=== PATIENT | male | born 1950 | race Caucasian/White ===

== ENCOUNTER 2020-04-17 19:18 | Inpatient (IN) ==
[2020-04-17] MEDS ORDERED: NITROGLYCERIN SL 0.4 MG TABLET SL ONE (19:25)
[2020-04-17] MEDS ORDERED: MORPHINE 4 MG/1 ML VIAL ONE (19:33)
[2020-04-17] MEDS ORDERED: HEPARIN 5,000 UNIT/1 ML VIAL ONE ×2 (19:34→20:23)
[2020-04-17] MEDS ORDERED: ONDANSETRON 4 MG/2 ML VIAL ONE ×2 (19:35→20:50)
[2020-04-17] MEDS ORDERED: EPTIFIBATIDE 20,000 MCG/10 ML VIAL ONE ×2 (19:36→21:07)
[2020-04-17] MEDS ORDERED: HEPARIN 5,000 UNIT/1 ML VIAL IV ONE (19:39)
[2020-04-17] MEDS ORDERED: NITROGLYCERIN SL 0.4 MG TABLET SL PRN (19:39)
[2020-04-17] MEDS ORDERED: MORPHINE 4 MG/1 ML VIAL IV STA (19:39)
[2020-04-17] MEDS ORDERED: ASPIRIN 325 MG TABLET PO STA (19:39)
[2020-04-17] MEDS: ONDANSETRON 4 MG/2 ML VIAL IV PRN (19:40)
[2020-04-17] MEDS ORDERED: MAGNESIUM SULF RIDER 2 GM in PREMIX 1 EACH IV PRN (19:41)
[2020-04-17] MEDS ORDERED: MAGNESIUM SULF RIDER 4 GM in PREMIX 1 EACH IV PRN (19:41)
[2020-04-17] MEDS ORDERED: DEXTROSE 50% 25 GM/50 ML VIAL IV PRN (19:41)
[2020-04-17] MEDS ORDERED: GLUCAGON 1 MG VIAL IM PRN (19:41)
[2020-04-17] MEDS: EPTIFIBATIDE 20,000 MCG/10 ML VIAL IV SCH ×2 (19:45→23:21)
[2020-04-17] MEDS ORDERED: LIDOCAINE 1% 20 ML VIAL ONE (19:52)
[2020-04-17] MEDS ORDERED: HEPARIN/NACL 0.9% 2 UNITS/ML 1,000 ML IV ONE (19:52)
[2020-04-17] MEDS ORDERED: MIDAZOLAM 2 MG/2 ML VIAL ONE (19:55)
[2020-04-17] MEDS ORDERED: HYDROmorphone 2 MG/1 ML VIAL ONE (19:55)
[2020-04-17] MEDS ORDERED: SODIUM CHLORIDE 0.45% 1,000 ML IV SCH (20:00)
[2020-04-17 20:06] LABS: INR 0.9; Partial Thromboplastin Time 26.5 SECS (23.9-33.8)
[2020-04-17 20:09] LABS: Albumin 3.5 G/DL (3.4-5.0); Bilirubin,Total 1.1 MG/DL (0.2-1.0); Calcium 8.7 MG/DL (8.5-10.1); Total Protein 7.2 G/DL (6.4-8.3)
[2020-04-17 20:15] LABS: Basophils # 0.1 10*3/uL (0.0-0.2); Basophils % 0.9 % (0.0-0.8); Eosinophils # 0.1 10*3/uL (0.0-0.87); Eosinophils % 0.5 % (0.00-10.9); Hematocrit 48.5 VOL% (42.0-52.0); Hemoglobin 17.6 GM/DL (14.0-18.0); Immature Granulocytes % 4.5 %; Immature Granulocytes Absolute 0.43 #; Lymphocytes # 1.8 10*3/uL (1.4-4.0); Lymphocytes % 18.5 % (21.2-54.2); Mean Corpuscular HGB Conc 36.3 GM/DL (32-36); Mean Corpuscular Volume 91.2 FL (87-102); Monocytes % 6.5 % (1.7-12.7); Neutrophils % 69.1 % (38.7-73.9); Platelet Count 164 T/CUMM (130-400); Red Blood Count 5.32 MC/CUMM (3.8-5.5); Red Cell Distribution Width 13.8 % (9.3-17.3); White Blood Count 9.5 T/CUMM (4-12)
[2020-04-17] MEDS ORDERED: EPTIFIBATIDE 75 MG/100 ML BOTTLE IV ONE (20:18)
[2020-04-17] MEDS: EPTIFIBATIDE 75 MG/100 ML BOTTLE IV SCH (20:21)
[2020-04-17] MEDS ORDERED: NITROPRUSSIDE 50 MG/2 ML VIAL ONE (20:22)
[2020-04-17] MEDS ORDERED: TICAGRELOR 90 MG TABLET ONE (20:54)
[2020-04-17] MEDS ORDERED: EPTIFIBATIDE 75 MG/100 ML BOTTLE IV SCH (21:00)
[2020-04-17] MEDS ORDERED: SODIUM CHLORIDE 0.9% 2,000 ML IV STA (21:04)
[2020-04-17] MEDS ORDERED: HEPARIN 5,000 UNIT/1 ML VIAL SUBCUT STA (21:06)
[2020-04-17] MEDS ORDERED: ZALEPLON 5 MG CAPSULE PO PRN (21:06)
[2020-04-17] MEDS ORDERED: SODIUM CHLORIDE 0.9% 1,000 ML IV SCH (21:30)
[2020-04-17] MEDS: INSULIN LISPRO 100 UNIT/ML SUBCUT SCH (21:52)
[2020-04-17] MEDS: MORPHINE 4 MG/1 ML VIAL IV PRN (22:02)
[2020-04-17] MEDS ORDERED: FUROSEMIDE 40 MG/4 ML VIAL IV ONE (22:14)
[2020-04-17] MEDS ORDERED: LABETALOL 20 MG/4 ML SYRINGE IV ONE (22:14)
[2020-04-17] MEDS ORDERED: FUROSEMIDE 40 MG/4 ML VIAL ONE (22:16)
[2020-04-17 23:26] LABS: CKMB % 7.8 %
[2020-04-17 23:29] LABS: Troponin I 71.1 NG/ML (0.00-0.045)
[2020-04-18] MEDS ORDERED: GLUCAGON 1 MG VIAL IM PRN (00:21)
[2020-04-18] MEDS ORDERED: DEXTROSE 50% 25 GM/50 ML VIAL IV PRN (00:21)
[2020-04-18] MEDS: EPTIFIBATIDE 75 MG/100 ML BOTTLE IV SCH (00:44)
[2020-04-18] MEDS: INSULIN GLARGINE 100 UNIT/ML SUBCUT SCH ×2 (00:53→20:58)
[2020-04-18] MEDS: MORPHINE 4 MG/1 ML VIAL IV PRN ×5 (00:54→23:28)
[2020-04-18] MEDS: NITROGLYCERIN DRIP 50 MG/250 ML BOTTLE IV PRN (01:10)
[2020-04-18] MEDS: ONDANSETRON 4 MG/2 ML VIAL IV PRN ×5 (02:02→23:28)
[2020-04-18 02:30] LABS: Basophils # 0.1 10*3/uL (0.0-0.2); Basophils % 0.8 % (0.0-0.8); Eosinophils % 0.1 % (0.00-10.9); Hematocrit 51.6 VOL% (42.0-52.0); Hemoglobin 17.6 GM/DL (14.0-18.0); Immature Granulocytes % 4.6 %; Immature Granulocytes Absolute 0.72 #; Lymphocytes # 1.5 10*3/uL (1.4-4.0); Lymphocytes % 9.5 % (21.2-54.2); Mean Corpuscular HGB Conc 34.1 GM/DL (32-36); Mean Corpuscular Volume 91.8 FL (87-102); Mean Platelet Volume 10.9 FL (9.6-12.0); Monocytes % 5.5 % (1.7-12.7); Neutrophils % 79.5 % (38.7-73.9); Platelet Count 171 T/CUMM (130-400); Red Blood Count 5.62 MC/CUMM (3.8-5.5); Red Cell Distribution Width 14.1 % (9.3-17.3); White Blood Count 15.5 T/CUMM (4-12)
[2020-04-18 02:40] LABS: Calcium 9.1 MG/DL (8.5-10.1); Osmolality,Calculated 293.1 MOS/KG (273-304)
[2020-04-18 04:56] LABS: Lymphocytes 10 % (20-55); Platelet Estimate Normal; Polychromasia 2+; Segmented Neutrophils 85 % (50-85); Total Cells Counted 100
[2020-04-18] MEDS ORDERED: MORPHINE 4 MG/1 ML VIAL IV ONE (07:05)
[2020-04-18 07:27] LABS: CKMB % 9.9 %
[2020-04-18] MEDS: ENOXAPARIN 40 MG/0.4 ML SYRINGE SUBCUT SCH (08:46)
[2020-04-18] MEDS: PANTOPRAZOLE 40 MG TABLET PO SCH (08:47)
[2020-04-18] MEDS: INSULIN LISPRO 100 UNIT/ML SUBCUT SCH ×3 (08:47→17:04)
[2020-04-18] MEDS: FUROSEMIDE 40 MG/4 ML VIAL IV SCH (08:47)
[2020-04-18] MEDS: TICAGRELOR 90 MG TABLET PO SCH ×2 (08:47→20:30)
[2020-04-18] MEDS: ASPIRIN EC 81 MG TABLET PO SCH (08:47)
[2020-04-18] MEDS ORDERED: carvediloL 3.125 MG TABLET PO SCH (09:00)
[2020-04-18 11:49] LABS: CKMB % 10.2 %
[2020-04-18 14:52] LABS: CKMB % 9.2 %
[2020-04-18 14:53] LABS: CKMB % 9.4 %
[2020-04-18] MEDS: ROSUVASTATIN 20 MG TABLET PO SCH (20:30)
[2020-04-18] MEDS: carvediloL 3.125 MG TABLET PO SCH (20:31)
[2020-04-18] MEDS: ALUMINUM/MAGNES/SIMETH MAX STR 30 ML UDCUP PO PRN (20:31)
[2020-04-19] MEDS: INSULIN LISPRO 100 UNIT/ML SUBCUT SCH ×5 (00:54→21:03)
[2020-04-19] MEDS: NITROGLYCERIN DRIP 50 MG/250 ML BOTTLE IV PRN (03:30)
[2020-04-19 04:39] LABS: Basophils % 0.2 % (0.0-0.8); Eosinophils % 0.3 % (0.00-10.9); Hematocrit 41.9 VOL% (42.0-52.0); Hemoglobin 14.1 GM/DL (14.0-18.0); Immature Granulocytes % 1.2 %; Immature Granulocytes Absolute 0.15 #; Lymphocytes # 1.5 10*3/uL (1.4-4.0); Lymphocytes % 12.3 % (21.2-54.2); Mean Corpuscular HGB Conc 33.7 GM/DL (32-36); Mean Corpuscular Volume 92.3 FL (87-102); Mean Platelet Volume 10.5 FL (9.6-12.0); Monocytes % 9.1 % (1.7-12.7); Neutrophils % 76.9 % (38.7-73.9); Platelet Count 114 T/CUMM (130-400); Red Blood Count 4.54 MC/CUMM (3.8-5.5); Red Cell Distribution Width 14.3 % (9.3-17.3); White Blood Count 12.1 T/CUMM (4-12)
[2020-04-19 05:20] LABS: Calcium 9.5 MG/DL (8.5-10.1); Osmolality,Calculated 286.1 MOS/KG (273-304)
[2020-04-19 05:22] LABS: Risk Ratio 5.24; VLDL CHOLESTEROL 79.4 MG/DL
[2020-04-19 05:23] LABS: Albumin 2.9 G/DL (3.4-5.0); Bilirubin,Direct 0.26 MG/DL (0.0-0.20); Bilirubin,Indirect 1.2 MG/DL (0.0-1.0); Bilirubin,Total 1.5 MG/DL (0.2-1.0); Total Protein 6.1 G/DL (6.4-8.3)
[2020-04-19] MEDS: FUROSEMIDE 40 MG/4 ML VIAL IV SCH (08:19)
[2020-04-19] MEDS: ENOXAPARIN 40 MG/0.4 ML SYRINGE SUBCUT SCH (08:19)
[2020-04-19] MEDS: POTASSIUM CHLORIDE 20 MEQ TABLET PO PRN (08:20)
[2020-04-19] MEDS: ASPIRIN EC 81 MG TABLET PO SCH (08:20)
[2020-04-19] MEDS: hydroCHLOROthiazide 12.5 MG CAPSULE PO SCH (08:20)
[2020-04-19] MEDS: carvediloL 3.125 MG TABLET PO SCH (08:20)
[2020-04-19] MEDS: TICAGRELOR 90 MG TABLET PO SCH ×2 (08:20→21:03)
[2020-04-19] MEDS: COLCHICINE 0.6 MG CAPSULE PO SCH ×2 (08:20→21:03)
[2020-04-19] MEDS: PANTOPRAZOLE 40 MG TABLET PO SCH (08:20)
[2020-04-19] MEDS ORDERED: TRAVOPROST 0.004% OPH SOLN 2.5 ML BOTTLE BOTH EYES SCH (09:00)
[2020-04-19] MEDS ORDERED: VALSARTAN 80 MG TABLET PO SCH (09:00)
[2020-04-19] MEDS ORDERED: TIMOLOL 0.5% OPH SOLN 5 ML BOTTLE BOTH EYES SCH (09:00)
[2020-04-19] MEDS ORDERED: TIMOLOL 0.5% OPH SOLN 5 ML BOTTLE RIGHT EYE SCH (09:16)
[2020-04-19] MEDS ORDERED: CARBOXYMETHYLCELLULOSE 1% OPH SOLN RIGHT EYE PRN ×2 (11:19→21:00)
[2020-04-19] MEDS: TRAVOPROST 0.004% OPH SOLN 2.5 ML BOTTLE RIGHT EYE SCH (21:02)
[2020-04-19] MEDS: TRESIBA 200 UNIT/ML SUBCUT SCH (21:02)
[2020-04-19] MEDS: INSULIN GLARGINE 100 UNIT/ML SUBCUT SCH (21:03)
[2020-04-19] MEDS: ROSUVASTATIN 20 MG TABLET PO SCH (21:03)
[2020-04-19] MEDS: carvediloL 12.5 MG TABLET PO SCH (21:03)
[2020-04-20 07:14] LABS: Calcium 9.1 MG/DL (8.5-10.1); Osmolality,Calculated 279.2 MOS/KG (273-304)
[2020-04-20] MEDS: ASPIRIN EC 81 MG TABLET PO SCH (09:40)
[2020-04-20] MEDS: hydroCHLOROthiazide 12.5 MG CAPSULE PO SCH (09:40)
[2020-04-20] MEDS: POTASSIUM CHLORIDE 20 MEQ TABLET PO PRN (09:40)
[2020-04-20] MEDS: PANTOPRAZOLE 40 MG TABLET PO SCH (09:40)
[2020-04-20] MEDS: COLCHICINE 0.6 MG CAPSULE PO SCH ×2 (09:40→21:22)
[2020-04-20] MEDS: carvediloL 12.5 MG TABLET PO SCH ×2 (09:40→21:23)
[2020-04-20] MEDS: TICAGRELOR 90 MG TABLET PO SCH ×2 (09:41→21:22)
[2020-04-20] MEDS: FUROSEMIDE 40 MG/4 ML VIAL IV SCH (09:41)
[2020-04-20] MEDS: ENOXAPARIN 40 MG/0.4 ML SYRINGE SUBCUT SCH (09:42)
[2020-04-20] MEDS: TIMOLOL 0.5% OPH SOLN 5 ML BOTTLE RIGHT EYE SCH (09:46)
[2020-04-20] MEDS: INSULIN LISPRO 100 UNIT/ML SUBCUT SCH ×4 (10:28→21:22)
[2020-04-20] MEDS ORDERED: POLYETHYLENE GLYCOL POWDER 17 GM PACK PO PRN (10:29)
[2020-04-20] MEDS: DOCUSATE SODIUM 100 MG CAPSULE PO SCH ×2 (12:08→21:22)
[2020-04-20] MEDS: TRAVOPROST 0.004% OPH SOLN 2.5 ML BOTTLE RIGHT EYE SCH (21:21)
[2020-04-20] MEDS: TRESIBA 200 UNIT/ML SUBCUT SCH (21:21)
[2020-04-20] MEDS: ROSUVASTATIN 20 MG TABLET PO SCH (21:22)
[2020-04-20] MEDS: INSULIN GLARGINE 100 UNIT/ML SUBCUT SCH (21:23)
[2020-04-21 06:36] LABS: Calcium 9.1 MG/DL (8.5-10.1)
[2020-04-21] MEDS: INSULIN LISPRO 100 UNIT/ML SUBCUT SCH ×4 (08:23→21:00)
[2020-04-21] MEDS: FUROSEMIDE 40 MG/4 ML VIAL IV SCH (09:14)
[2020-04-21] MEDS: ENOXAPARIN 40 MG/0.4 ML SYRINGE SUBCUT SCH (09:14)
[2020-04-21] MEDS: DOCUSATE SODIUM 100 MG CAPSULE PO SCH ×2 (09:15→21:01)
[2020-04-21] MEDS: hydroCHLOROthiazide 12.5 MG CAPSULE PO SCH (09:15)
[2020-04-21] MEDS: PANTOPRAZOLE 40 MG TABLET PO SCH (09:15)
[2020-04-21] MEDS: carvediloL 12.5 MG TABLET PO SCH ×2 (09:15→21:01)
[2020-04-21] MEDS: COLCHICINE 0.6 MG CAPSULE PO SCH ×2 (09:15→21:01)
[2020-04-21] MEDS: POTASSIUM CHLORIDE 20 MEQ TABLET PO PRN ×2 (09:15→10:40)
[2020-04-21] MEDS: ASPIRIN EC 81 MG TABLET PO SCH (09:16)
[2020-04-21] MEDS: TIMOLOL 0.5% OPH SOLN 5 ML BOTTLE RIGHT EYE SCH (09:16)
[2020-04-21] MEDS: TICAGRELOR 90 MG TABLET PO SCH ×2 (09:16→21:01)
[2020-04-21] MEDS: ALUMINUM/MAGNES/SIMETH MAX STR 30 ML UDCUP PO PRN ×2 (09:26→16:04)
[2020-04-21] MEDS: CLINDAMYCIN INJ 600 MG in PREMIX 1 EACH IV SCH ×2 (16:03→21:10)
[2020-04-21] MEDS: TRESIBA 200 UNIT/ML SUBCUT SCH (20:59)
[2020-04-21] MEDS: TRAVOPROST 0.004% OPH SOLN 2.5 ML BOTTLE RIGHT EYE SCH (20:59)
[2020-04-21] MEDS: INSULIN GLARGINE 100 UNIT/ML SUBCUT SCH (21:01)
[2020-04-21] MEDS: ROSUVASTATIN 20 MG TABLET PO SCH (21:01)
[2020-04-22] MEDS: CLINDAMYCIN INJ 600 MG in PREMIX 1 EACH IV SCH ×4 (03:31→22:35)
[2020-04-22] MEDS: INSULIN LISPRO 100 UNIT/ML SUBCUT SCH ×4 (08:42→21:32)
[2020-04-22] MEDS: FUROSEMIDE 40 MG/4 ML VIAL IV SCH (10:21)
[2020-04-22] MEDS: SODIUM CHLORIDE 0.9% 1,000 ML IV SCH (10:21)
[2020-04-22] MEDS: ENOXAPARIN 40 MG/0.4 ML SYRINGE SUBCUT SCH (10:21)
[2020-04-22] MEDS: hydroCHLOROthiazide 12.5 MG CAPSULE PO SCH (10:22)
[2020-04-22] MEDS: TIMOLOL 0.5% OPH SOLN 5 ML BOTTLE RIGHT EYE SCH (10:22)
[2020-04-22] MEDS: carvediloL 12.5 MG TABLET PO SCH ×2 (10:23→21:33)
[2020-04-22] MEDS: ASPIRIN EC 81 MG TABLET PO SCH (10:23)
[2020-04-22] MEDS: DOCUSATE SODIUM 100 MG CAPSULE PO SCH ×2 (10:23→21:33)
[2020-04-22] MEDS: COLCHICINE 0.6 MG CAPSULE PO SCH ×2 (10:23→21:33)
[2020-04-22] MEDS: TICAGRELOR 90 MG TABLET PO SCH ×2 (10:23→21:33)
[2020-04-22] MEDS: PANTOPRAZOLE 40 MG TABLET PO SCH (10:23)
[2020-04-22] MEDS: TRESIBA 200 UNIT/ML SUBCUT SCH (21:30)
[2020-04-22] MEDS: TRAVOPROST 0.004% OPH SOLN 2.5 ML BOTTLE RIGHT EYE SCH (21:30)
[2020-04-22] MEDS: INSULIN GLARGINE 100 UNIT/ML SUBCUT SCH (21:34)
[2020-04-22] MEDS: ROSUVASTATIN 20 MG TABLET PO SCH (21:34)
[2020-04-23] MEDS: SODIUM CHLORIDE 0.9% 1,000 ML IV SCH ×3 (01:01→21:47)
[2020-04-23] MEDS: CLINDAMYCIN INJ 600 MG in PREMIX 1 EACH IV SCH ×4 (04:10→21:56)
[2020-04-23 05:36] LABS: Basophils # 0.1 10*3/uL (0.0-0.2); Basophils % 0.7 % (0.0-0.8); Eosinophils # 0.2 10*3/uL (0.0-0.87); Eosinophils % 2.7 % (0.00-10.9); Hematocrit 39.9 VOL% (42.0-52.0); Immature Granulocytes % 2.8 %; Lymphocytes # 1.6 10*3/uL (1.4-4.0); Lymphocytes % 22.4 % (21.2-54.2); Mean Corpuscular HGB Conc 35.1 GM/DL (32-36); Mean Corpuscular Volume 89.1 FL (87-102); Mean Platelet Volume 11.1 FL (9.6-12.0); Monocytes % 11.9 % (1.7-12.7); Neutrophils % 59.5 % (38.7-73.9); Platelet Count 116 T/CUMM (130-400); Red Blood Count 4.48 MC/CUMM (3.8-5.5); Red Cell Distribution Width 13.9 % (9.3-17.3); White Blood Count 7.1 T/CUMM (4-12)
[2020-04-23 05:58] LABS: Calcium 9.1 MG/DL (8.5-10.1); Osmolality,Calculated 288.7 MOS/KG (273-304)
[2020-04-23] MEDS ORDERED: DIAZEPAM 5 MG TABLET PO ONE (06:00)
[2020-04-23] MEDS ORDERED: diphenhydrAMINE CAP 25 MG CAPSULE PO ONE (06:00)
[2020-04-23] MEDS ORDERED: LIDOCAINE 1% 20 ML VIAL ONE (06:53)
[2020-04-23] MEDS ORDERED: HEPARIN/NACL 0.9% 2 UNITS/ML 1,000 ML IV ONE (06:53)
[2020-04-23] MEDS: POTASSIUM CHLORIDE 20 MEQ TABLET PO PRN ×3 (07:01→16:34)
[2020-04-23] MEDS: carvediloL 12.5 MG TABLET PO SCH ×3 (07:39→21:48)
[2020-04-23] MEDS ORDERED: HYDROmorphone 2 MG/1 ML VIAL ONE (08:08)
[2020-04-23] MEDS ORDERED: MIDAZOLAM 2 MG/2 ML VIAL ONE (08:08)
[2020-04-23] MEDS ORDERED: BIVALIRUDIN 250 MG VIAL IV ONE (08:35)
[2020-04-23] MEDS: INSULIN LISPRO 100 UNIT/ML SUBCUT SCH ×4 (09:13→21:55)
[2020-04-23] MEDS ORDERED: TICAGRELOR 90 MG TABLET ONE (09:13)
[2020-04-23] MEDS ORDERED: DEXTROSE 50% 25 GM/50 ML VIAL IV PRN (09:22)
[2020-04-23] MEDS ORDERED: GLUCAGON 1 MG VIAL IM PRN (09:22)
[2020-04-23] MEDS: FUROSEMIDE 40 MG/4 ML VIAL IV SCH (12:55)
[2020-04-23] MEDS: PANTOPRAZOLE 40 MG TABLET PO SCH (13:32)
[2020-04-23] MEDS: hydroCHLOROthiazide 12.5 MG CAPSULE PO SCH (13:32)
[2020-04-23] MEDS: DOCUSATE SODIUM 100 MG CAPSULE PO SCH ×2 (13:32→22:08)
[2020-04-23] MEDS: COLCHICINE 0.6 MG CAPSULE PO SCH ×2 (13:32→21:48)
[2020-04-23] MEDS: ASPIRIN EC 81 MG TABLET PO SCH (13:32)
[2020-04-23] MEDS: TICAGRELOR 90 MG TABLET PO SCH ×2 (13:36→21:49)
[2020-04-23] MEDS: TIMOLOL 0.5% OPH SOLN 5 ML BOTTLE RIGHT EYE SCH (13:36)
[2020-04-23] MEDS ORDERED: TUBERCULIN SKIN TEST 0.1 ML SYRINGE INTRADERM ONE (14:34)
[2020-04-23] MEDS: ENOXAPARIN 40 MG/0.4 ML SYRINGE SUBCUT SCH (18:51)
[2020-04-23] MEDS: ROSUVASTATIN 20 MG TABLET PO SCH (21:48)
[2020-04-23] MEDS: TRESIBA 200 UNIT/ML SUBCUT SCH (21:51)
[2020-04-23] MEDS: TRAVOPROST 0.004% OPH SOLN 2.5 ML BOTTLE RIGHT EYE SCH (21:58)
[2020-04-23] MEDS: INSULIN GLARGINE 100 UNIT/ML SUBCUT SCH (22:08)
[2020-04-24] MEDS: SODIUM CHLORIDE 0.9% 1,000 ML IV SCH ×2 (02:59→12:39)
[2020-04-24] MEDS: CLINDAMYCIN INJ 600 MG in PREMIX 1 EACH IV SCH ×4 (04:30→23:19)
[2020-04-24 06:31] LABS: Blood Urea Nitrogen 48 MG/DL (7-18); Calcium 8.5 MG/DL (8.5-10.1); Estimated Glom Filtration Rate 47 ML/MIN; Glucose 283 MG/DL (74-106)
[2020-04-24] MEDS: ASPIRIN EC 81 MG TABLET PO SCH (09:01)
[2020-04-24] MEDS: COLCHICINE 0.6 MG CAPSULE PO SCH ×2 (09:01→22:29)
[2020-04-24] MEDS: FUROSEMIDE 40 MG/4 ML VIAL IV SCH (09:01)
[2020-04-24] MEDS: carvediloL 12.5 MG TABLET PO SCH ×2 (09:01→22:30)
[2020-04-24] MEDS: hydroCHLOROthiazide 12.5 MG CAPSULE PO SCH (09:01)
[2020-04-24] MEDS: TICAGRELOR 90 MG TABLET PO SCH ×2 (09:01→22:30)
[2020-04-24] MEDS: PANTOPRAZOLE 40 MG TABLET PO SCH (09:01)
[2020-04-24] MEDS: INSULIN LISPRO 100 UNIT/ML SUBCUT SCH ×3 (09:02→16:15)
[2020-04-24] MEDS: DOCUSATE SODIUM 100 MG CAPSULE PO SCH ×2 (09:03→22:30)
[2020-04-24] MEDS: TIMOLOL 0.5% OPH SOLN 5 ML BOTTLE RIGHT EYE SCH (09:04)
[2020-04-24] MEDS: ROSUVASTATIN 20 MG TABLET PO SCH (22:30)
[2020-04-24] MEDS: TRAVOPROST 0.004% OPH SOLN 2.5 ML BOTTLE RIGHT EYE SCH (22:33)
[2020-04-24] MEDS: TRESIBA 200 UNIT/ML SUBCUT SCH (23:08)
[2020-04-25] MEDS: INSULIN LISPRO 100 UNIT/ML SUBCUT SCH ×5 (00:04→21:17)
[2020-04-25] MEDS: INSULIN GLARGINE 100 UNIT/ML SUBCUT SCH ×3 (00:04→21:25)
[2020-04-25] MEDS: SODIUM CHLORIDE 0.9% 1,000 ML IV SCH ×3 (02:51→16:55)
[2020-04-25] MEDS: CLINDAMYCIN INJ 600 MG in PREMIX 1 EACH IV SCH ×4 (04:48→21:12)
[2020-04-25] MEDS ORDERED: LIDOCAINE 1% 20 ML VIAL ONE (06:28)
[2020-04-25 06:34] LABS: Calcium 8.5 MG/DL (8.5-10.1); Osmolality,Calculated 291.7 MOS/KG (273-304)
[2020-04-25] MEDS: TIMOLOL 0.5% OPH SOLN 5 ML BOTTLE RIGHT EYE SCH ×2 (06:45→09:10)
[2020-04-25] MEDS ORDERED: propofoL 200 MG/20 ML VIAL IV ONE (08:06)
[2020-04-25] MEDS ORDERED: LIDOCAINE 2% 5 ML VIAL ONE (08:06)
[2020-04-25] MEDS ORDERED: LIDOCAINE 1% 5 ML VIAL ONE (08:06)
[2020-04-25] MEDS ORDERED: KETAMINE 500 MG/10 ML VIAL ONE (08:07)
[2020-04-25] MEDS ORDERED: SODIUM CHLORIDE 0.9% 100 ML IV ONE (08:07)
[2020-04-25] MEDS ORDERED: MIDAZOLAM 2 MG/2 ML VIAL ONE (08:07)
[2020-04-25] MEDS: hydroCHLOROthiazide 12.5 MG CAPSULE PO SCH (09:08)
[2020-04-25] MEDS: FUROSEMIDE 40 MG/4 ML VIAL IV SCH (09:08)
[2020-04-25] MEDS: PANTOPRAZOLE 40 MG TABLET PO SCH (09:08)
[2020-04-25] MEDS: carvediloL 12.5 MG TABLET PO SCH ×2 (09:08→21:15)
[2020-04-25] MEDS: DOCUSATE SODIUM 100 MG CAPSULE PO SCH ×2 (09:09→21:15)
[2020-04-25] MEDS: COLCHICINE 0.6 MG CAPSULE PO SCH ×2 (09:09→21:15)
[2020-04-25] MEDS: TICAGRELOR 90 MG TABLET PO SCH ×2 (09:09→21:15)
[2020-04-25] MEDS: ASPIRIN EC 81 MG TABLET PO SCH (09:09)
[2020-04-25] MEDS ORDERED: DEXTROSE 50% 25 GM/50 ML VIAL IV PRN (10:21)
[2020-04-25] MEDS ORDERED: GLUCAGON 1 MG VIAL IM PRN (10:21)
[2020-04-25] MEDS: traMADol 50 MG TABLET PO PRN ×2 (15:32→21:15)
[2020-04-25] MEDS: ROSUVASTATIN 20 MG TABLET PO SCH (21:16)
[2020-04-25] MEDS: TRAVOPROST 0.004% OPH SOLN 2.5 ML BOTTLE RIGHT EYE SCH (21:17)
[2020-04-25] MEDS: TRESIBA 200 UNIT/ML SUBCUT SCH (21:18)
[2020-04-26] MEDS: CLINDAMYCIN INJ 600 MG in PREMIX 1 EACH IV SCH ×4 (04:08→21:18)
[2020-04-26] MEDS: SODIUM CHLORIDE 0.9% 1,000 ML IV SCH ×2 (06:31→21:17)
[2020-04-26] MEDS: INSULIN LISPRO 100 UNIT/ML SUBCUT SCH ×4 (07:20→21:22)
[2020-04-26] MEDS: PANTOPRAZOLE 40 MG TABLET PO SCH (09:34)
[2020-04-26] MEDS: carvediloL 12.5 MG TABLET PO SCH ×2 (09:34→21:20)
[2020-04-26] MEDS: traMADol 50 MG TABLET PO PRN ×2 (09:34→16:14)
[2020-04-26] MEDS: hydroCHLOROthiazide 12.5 MG CAPSULE PO SCH (09:34)
[2020-04-26] MEDS: ASPIRIN EC 81 MG TABLET PO SCH (09:34)
[2020-04-26] MEDS: COLCHICINE 0.6 MG CAPSULE PO SCH ×2 (09:34→21:20)
[2020-04-26] MEDS: DOCUSATE SODIUM 100 MG CAPSULE PO SCH ×2 (09:34→21:20)
[2020-04-26] MEDS: TICAGRELOR 90 MG TABLET PO SCH ×2 (09:35→21:21)
[2020-04-26] MEDS: TIMOLOL 0.5% OPH SOLN 5 ML BOTTLE RIGHT EYE SCH (09:35)
[2020-04-26] MEDS: FUROSEMIDE 40 MG/4 ML VIAL IV SCH (09:35)
[2020-04-26] MEDS: ROSUVASTATIN 20 MG TABLET PO SCH (21:19)
[2020-04-26] MEDS: TRAVOPROST 0.004% OPH SOLN 2.5 ML BOTTLE RIGHT EYE SCH (21:22)
[2020-04-26] MEDS: TRESIBA 200 UNIT/ML SUBCUT SCH (21:22)
[2020-04-26] MEDS: INSULIN GLARGINE 100 UNIT/ML SUBCUT SCH (21:23)
[2020-04-27] MEDS: traMADol 50 MG TABLET PO PRN (01:22)
[2020-04-27] MEDS: CLINDAMYCIN INJ 600 MG in PREMIX 1 EACH IV SCH ×4 (04:35→21:23)
[2020-04-27 06:39] LABS: Basophils % 0.5 % (0.0-0.8); Eosinophils # 0.2 10*3/uL (0.0-0.87); Eosinophils % 2.7 % (0.00-10.9); Hemoglobin 12.5 GM/DL (14.0-18.0); Immature Granulocytes % 1.9 %; Immature Granulocytes Absolute 0.12 #; Lymphocytes # 1.7 10*3/uL (1.4-4.0); Lymphocytes % 27.3 % (21.2-54.2); Mean Corpuscular HGB Conc 34.7 GM/DL (32-36); Mean Corpuscular Volume 89.1 FL (87-102); Mean Platelet Volume 11.1 FL (9.6-12.0); Monocytes % 9.9 % (1.7-12.7); Neutrophils % 57.7 % (38.7-73.9); Platelet Count 144 T/CUMM (130-400); Red Blood Count 4.04 MC/CUMM (3.8-5.5); Red Cell Distribution Width 13.7 % (9.3-17.3); White Blood Count 6.2 T/CUMM (4-12)
[2020-04-27 06:55] LABS: Calcium 9.2 MG/DL (8.5-10.1); Thyroid Stimulating Hormone 3.59 uIU/ml (0.358-3.74); Total Protein 6.5 G/DL (6.4-8.3); Uric Acid 12.3 MG/DL (3.5-7.2)
[2020-04-27] MEDS: INSULIN LISPRO 100 UNIT/ML SUBCUT SCH ×4 (08:43→21:32)
[2020-04-27] MEDS: DOCUSATE SODIUM 100 MG CAPSULE PO SCH ×2 (09:26→21:23)
[2020-04-27] MEDS: COLCHICINE 0.6 MG CAPSULE PO SCH ×2 (09:26→21:22)
[2020-04-27] MEDS: carvediloL 12.5 MG TABLET PO SCH ×2 (09:27→21:23)
[2020-04-27] MEDS: hydroCHLOROthiazide 12.5 MG CAPSULE PO SCH (09:27)
[2020-04-27] MEDS: FUROSEMIDE 40 MG/4 ML VIAL IV SCH (09:27)
[2020-04-27] MEDS: TICAGRELOR 90 MG TABLET PO SCH ×2 (09:27→21:23)
[2020-04-27] MEDS: POTASSIUM CHLORIDE 20 MEQ TABLET PO PRN ×4 (09:27→15:50)
[2020-04-27] MEDS: ASPIRIN EC 81 MG TABLET PO SCH (09:27)
[2020-04-27] MEDS: PANTOPRAZOLE 40 MG TABLET PO SCH (09:27)
[2020-04-27] MEDS: TIMOLOL 0.5% OPH SOLN 5 ML BOTTLE RIGHT EYE SCH (09:29)
[2020-04-27] MEDS: SODIUM CHLORIDE 0.9% 1,000 ML IV SCH (09:52)
[2020-04-27] MEDS: SKIN HEALING OINT (AQUAPHOR) 50 GM TUBE TOP SCH (13:47)
[2020-04-27] MEDS ORDERED: allopurinoL 100 MG TABLET PO SCH (16:00)
[2020-04-27] MEDS: ROSUVASTATIN 20 MG TABLET PO SCH (21:22)
[2020-04-27] MEDS: TRESIBA 200 UNIT/ML SUBCUT SCH (21:24)
[2020-04-27] MEDS: INSULIN GLARGINE 100 UNIT/ML SUBCUT SCH (21:25)
[2020-04-27] MEDS: TRAVOPROST 0.004% OPH SOLN 2.5 ML BOTTLE RIGHT EYE SCH (21:26)
[2020-04-28] MEDS: traMADol 50 MG TABLET PO PRN (01:04)
[2020-04-28] MEDS: POTASSIUM CHLORIDE 20 MEQ TABLET PO PRN ×2 (01:05→04:06)
[2020-04-28] MEDS: CLINDAMYCIN INJ 600 MG in PREMIX 1 EACH IV SCH ×2 (04:06→09:25)
[2020-04-28 05:46] LABS: Calcium 9.6 MG/DL (8.5-10.1)
[2020-04-28] MEDS: hydroCHLOROthiazide 12.5 MG CAPSULE PO SCH (08:55)
[2020-04-28] MEDS: carvediloL 12.5 MG TABLET PO SCH (08:55)
[2020-04-28] MEDS: TICAGRELOR 90 MG TABLET PO SCH (08:55)
[2020-04-28] MEDS: SKIN HEALING OINT (AQUAPHOR) 50 GM TUBE TOP SCH (08:55)
[2020-04-28] MEDS: INSULIN LISPRO 100 UNIT/ML SUBCUT SCH ×2 (08:55→15:29)
[2020-04-28] MEDS: PANTOPRAZOLE 40 MG TABLET PO SCH (08:55)
[2020-04-28] MEDS: DOCUSATE SODIUM 100 MG CAPSULE PO SCH (08:55)
[2020-04-28] MEDS: TIMOLOL 0.5% OPH SOLN 5 ML BOTTLE RIGHT EYE SCH (08:55)
[2020-04-28] MEDS: ASPIRIN EC 81 MG TABLET PO SCH (08:55)
[2020-04-28] MEDS: COLCHICINE 0.6 MG CAPSULE PO SCH (08:55)
[2020-04-28] MEDS ORDERED: FEBUXOSTAT 80 MG TABLET PO SCH (09:00)
[2020-04-28] MEDS: FUROSEMIDE 40 MG/4 ML VIAL IV SCH (09:25)
[2020-04-28 12:29] VITALS: BP 114/65
== END 2020-04-28 14:04 | DRG 239 ==
LOC: EDBD → EDUNIT# → N.ED 19:18 → N.EDINP 19:41 → SUATTDRO 19:41 → N.ICU 19:55 → N.TELEN 04-19 14:34
PROVIDERS: ADMIT Family Medicine; ATTEND Family Medicine
PROC: CLCCHCL (ICD-10-PCS; 2020-04-17 20:15)

== ENCOUNTER 2020-06-27 19:29 | Inpatient (IN) ==
[2020-06-27 20:34] LABS: Basophils % 0.2 % (0.0-0.8); Eosinophils # 0.2 10*3/uL (0.0-0.87); Eosinophils % 1.8 % (0.00-10.9); Hematocrit 28.5 VOL% (42.0-52.0); Hemoglobin 9.4 GM/DL (14.0-18.0); Immature Granulocytes % 0.9 %; Immature Granulocytes Absolute 0.09 #; Lymphocytes # 1.1 10*3/uL (1.4-4.0); Lymphocytes % 11.1 % (21.2-54.2); Mean Corpuscular Volume 89.1 FL (87-102); Mean Platelet Volume 10.9 FL (9.6-12.0); Monocytes % 11.8 % (1.7-12.7); Neutrophils % 74.2 % (38.7-73.9); Platelet Count 191 T/CUMM (130-400); Red Cell Distribution Width 14.7 % (9.3-17.3); White Blood Count 9.5 T/CUMM (4-12)
[2020-06-27 20:38] LABS: Albumin 2.9 G/DL (3.4-5.0); Calcium 8.8 MG/DL (8.5-10.1); Osmolality,Calculated 297.1 MOS/KG (273-304); Total Protein 6.2 G/DL (6.4-8.3)
[2020-06-27 20:41] LABS: Bilirubin,Urine Negative (Negative); Blood, Urine Negative (Negative); Glucose,Urine (UA) Negative (Negative); Hyaline Casts,Urine 3 /LPF (0-3); Ketones,Urine Negative (Negative); Mucus,Urine Occasional /LPF (Occasional); Nitrite,Urine Positive (Negative); Protein,Urine 30 MG/DL; RBC,Urine 2 /HPF (0-4); Squamous Epithelial Cell,Urine Occasional /HPF (0-10); Urine Appearance CLEAR (Clear); Urine Color Amber (Yellow); Urine Specific Gravity 1.014 (1.001-1.035); WBC,Urine 2 /HPF (0-6)
[2020-06-27] MEDS ORDERED: SODIUM CHLORIDE 0.9% 1,000 ML IV STA (20:59)
[2020-06-27] MEDS ORDERED: cefTRIAXone 1,000 MG in SODIUM CHLORIDE 0.9% 100 ML IV STA (21:00)
[2020-06-27] MEDS ORDERED: ACETAMINOPHEN 500 MG TABLET PO STA (21:00)
[2020-06-27] MEDS: SODIUM CHLORIDE 0.9% 1,000 ML IV SCH (23:13)
[2020-06-28 06:13] LABS: Basophils % 0.2 % (0.0-0.8); Eosinophils # 0.2 10*3/uL (0.0-0.87); Eosinophils % 1.8 % (0.00-10.9); Hematocrit 27.2 VOL% (42.0-52.0); Hemoglobin 8.9 GM/DL (14.0-18.0); Immature Granulocytes % 0.6 %; Immature Granulocytes Absolute 0.05 #; Lymphocytes # 0.7 10*3/uL (1.4-4.0); Lymphocytes % 8.1 % (21.2-54.2); Mean Corpuscular HGB Conc 32.7 GM/DL (32-36); Mean Corpuscular Volume 90.4 FL (87-102); Mean Platelet Volume 10.7 FL (9.6-12.0); Monocytes % 10.1 % (1.7-12.7); Neutrophils % 79.2 % (38.7-73.9); Platelet Count 164 T/CUMM (130-400); Red Blood Count 3.01 MC/CUMM (3.8-5.5); Red Cell Distribution Width 14.5 % (9.3-17.3); White Blood Count 8.9 T/CUMM (4-12)
[2020-06-28 06:37] LABS: Albumin 2.4 G/DL (3.4-5.0); Bilirubin,Total 1.3 MG/DL (0.2-1.0); Osmolality,Calculated 298.5 MOS/KG (273-304); Total Protein 6.4 G/DL (6.4-8.3)
[2020-06-28] MEDS: SODIUM CHLORIDE 0.9% 1,000 ML IV SCH ×2 (07:23→15:05)
[2020-06-28] MEDS: DOCUSATE SODIUM 100 MG CAPSULE PO SCH ×2 (09:33→21:31)
[2020-06-28] MEDS: POTASSIUM CHLORIDE 20 MEQ TABLET PO PRN ×4 (09:33→17:30)
[2020-06-28] MEDS: PANTOPRAZOLE 40 MG TABLET PO SCH (09:33)
[2020-06-28] MEDS: ONDANSETRON 4 MG/2 ML VIAL IV PRN (09:34)
[2020-06-28] MEDS: ACETAMINOPHEN 325 MG TABLET PO PRN (09:34)
[2020-06-28] MEDS ORDERED: POLYETHYLENE GLYCOL POWDER 17 GM PACK PO PRN (09:55)
[2020-06-28] MEDS ORDERED: CARBOXYMETHYLCELLULOSE 1% OPH SOLN RIGHT EYE PRN (09:55)
[2020-06-28] MEDS ORDERED: NITROGLYCERIN SL 0.4 MG TABLET SL PRN (09:55)
[2020-06-28] MEDS ORDERED: ALUMINUM/MAGNES/SIMETH MAX STR 30 ML UDCUP PO PRN (09:55)
[2020-06-28] MEDS ORDERED: traMADol 50 MG TABLET PO PRN (09:55)
[2020-06-28] MEDS: INSULIN LISPRO 100 UNIT/ML SUBCUT SCH ×3 (12:20→21:55)
[2020-06-28] MEDS: LORazepam 2 MG/1 ML VIAL IV PRN (15:06)
[2020-06-28] MEDS ORDERED: FUROSEMIDE 40 MG/4 ML VIAL IV ONE (17:23)
[2020-06-28] MEDS: SODIUM CHLORIDE 0.45% 1,000 ML IV SCH (18:01)
[2020-06-28] MEDS: MORPHINE 4 MG/1 ML VIAL IV PRN (18:03)
[2020-06-28] MEDS ORDERED: cefTRIAXone 1,000 MG in SODIUM CHLORIDE 0.9% 100 ML IV SCH (21:00)
[2020-06-28] MEDS ORDERED: SULFAMETHOX/TRIMETHOPRIM 800-160 MG TABLET PO SCH (21:00)
[2020-06-28] MEDS: MELATONIN 3 MG TABLET PO PRN (21:31)
[2020-06-28] MEDS: ESCITALOPRAM 10 MG TABLET PO SCH (21:31)
[2020-06-28] MEDS: carvediloL 12.5 MG TABLET PO SCH (21:32)
[2020-06-28] MEDS: TICAGRELOR 90 MG TABLET PO SCH (21:32)
[2020-06-28] MEDS: INSULIN GLARGINE 100 UNIT/ML SUBCUT SCH (21:55)
[2020-06-29 06:05] LABS: Calcium 8.6 MG/DL (8.5-10.1)
[2020-06-29] MEDS ORDERED: hydroCHLOROthiazide 12.5 MG CAPSULE PO SCH (09:00)
[2020-06-29] MEDS: INSULIN LISPRO 100 UNIT/ML SUBCUT SCH ×4 (09:00→21:09)
[2020-06-29] MEDS ORDERED: VALSARTAN 80 MG TABLET PO SCH (09:00)
[2020-06-29] MEDS ORDERED: VALSARTAN/HCTZ 160-12.5 MG TABLET PO SCH ×2 (09:00)
[2020-06-29] MEDS: TICAGRELOR 90 MG TABLET PO SCH ×2 (09:01→21:10)
[2020-06-29] MEDS: POTASSIUM CHLORIDE 10 MEQ TABLET PO SCH (09:01)
[2020-06-29] MEDS: DOCUSATE SODIUM 100 MG CAPSULE PO SCH ×2 (09:02→21:09)
[2020-06-29] MEDS: ASPIRIN EC 81 MG TABLET PO SCH (09:02)
[2020-06-29] MEDS: PANTOPRAZOLE 40 MG TABLET PO SCH (09:02)
[2020-06-29] MEDS: INSULIN GLARGINE 100 UNIT/ML SUBCUT SCH ×2 (09:02→21:11)
[2020-06-29] MEDS: FEBUXOSTAT 80 MG TABLET PO SCH (09:02)
[2020-06-29] MEDS: TIMOLOL 0.5% OPH SOLN 5 ML BOTTLE RIGHT EYE SCH (09:02)
[2020-06-29] MEDS: carvediloL 12.5 MG TABLET PO SCH ×2 (09:03→21:10)
[2020-06-29] MEDS: [UNRECOGNIZED DRUG - REMARK] BOTH NARES SCH (09:03)
[2020-06-29] MEDS ORDERED: BENZOCAINE/MENTHOL LOZENGE 18/BOX PO PRN (10:34)
[2020-06-29] MEDS: FUROSEMIDE 40 MG TABLET PO SCH (12:51)
[2020-06-29] MEDS: ONDANSETRON 4 MG/2 ML VIAL IV PRN (13:22)
[2020-06-29] MEDS: SODIUM CHLORIDE 0.45% 1,000 ML IV SCH (14:00)
[2020-06-29] MEDS: ACETAMINOPHEN 325 MG TABLET PO PRN (15:48)
[2020-06-29] MEDS ORDERED: FUROSEMIDE 40 MG/4 ML VIAL IV ONE (17:53)
[2020-06-29] MEDS: LORazepam 2 MG/1 ML VIAL IV PRN (18:03)
[2020-06-29] MEDS: MORPHINE 4 MG/1 ML VIAL IV PRN (18:05)
[2020-06-29 19:25] LABS: Basophils % 0.2 % (0.0-0.8); Eosinophils # 0.1 10*3/uL (0.0-0.87); Eosinophils % 0.4 % (0.00-10.9); Hematocrit 26.5 VOL% (42.0-52.0); Hemoglobin 8.8 GM/DL (14.0-18.0); Immature Granulocytes % 0.8 %; Lymphocytes # 0.6 10*3/uL (1.4-4.0); Lymphocytes % 5.2 % (21.2-54.2); Mean Corpuscular HGB Conc 33.2 GM/DL (32-36); Mean Corpuscular Volume 89.2 FL (87-102); Mean Platelet Volume 10.6 FL (9.6-12.0); Monocytes % 7.8 % (1.7-12.7); Neutrophils % 85.6 % (38.7-73.9); Platelet Count 181 T/CUMM (130-400); Red Blood Count 2.97 MC/CUMM (3.8-5.5); Red Cell Distribution Width 14.7 % (9.3-17.3)
[2020-06-29] MEDS: ESCITALOPRAM 10 MG TABLET PO SCH (21:11)
[2020-06-29] MEDS: MELATONIN 3 MG TABLET PO PRN (21:14)
[2020-06-29] MEDS: PIPERACILLIN/TAZOBACTAM 3,375 MG in SODIUM CHLORIDE 0.9% 100 ML IV SCH (21:23)
[2020-06-30] MEDS: LORazepam 2 MG/1 ML VIAL IV PRN ×2 (02:57→13:39)
[2020-06-30] MEDS: MORPHINE 4 MG/1 ML VIAL IV PRN ×3 (03:00→21:47)
[2020-06-30] MEDS: PIPERACILLIN/TAZOBACTAM 3,375 MG in SODIUM CHLORIDE 0.9% 100 ML IV SCH ×3 (06:59→20:41)
[2020-06-30 08:59] LABS: Osmolality,Calculated 289.8 MOS/KG (273-304)
[2020-06-30] MEDS: ASPIRIN EC 81 MG TABLET PO SCH (09:56)
[2020-06-30] MEDS: POTASSIUM CHLORIDE 10 MEQ TABLET PO SCH (09:56)
[2020-06-30] MEDS: carvediloL 12.5 MG TABLET PO SCH ×2 (09:56→20:42)
[2020-06-30] MEDS: FEBUXOSTAT 80 MG TABLET PO SCH (09:56)
[2020-06-30] MEDS: DOCUSATE SODIUM 100 MG CAPSULE PO SCH ×2 (09:56→20:41)
[2020-06-30] MEDS: TICAGRELOR 90 MG TABLET PO SCH ×2 (09:56→20:41)
[2020-06-30] MEDS: PANTOPRAZOLE 40 MG TABLET PO SCH (09:56)
[2020-06-30] MEDS: FUROSEMIDE 40 MG TABLET PO SCH (09:56)
[2020-06-30] MEDS: INSULIN LISPRO 100 UNIT/ML SUBCUT SCH ×4 (10:02→20:42)
[2020-06-30] MEDS: INSULIN GLARGINE 100 UNIT/ML SUBCUT SCH ×2 (10:04→20:41)
[2020-06-30] MEDS: [UNRECOGNIZED DRUG - REMARK] BOTH NARES SCH (10:05)
[2020-06-30] MEDS: TIMOLOL 0.5% OPH SOLN 5 ML BOTTLE RIGHT EYE SCH (10:05)
[2020-06-30] MEDS: FLUTICASONE 50 MCG NASAL SPRAY 16 GM BOTTLE BOTH NARES SCH (18:23)
[2020-06-30] MEDS: ESCITALOPRAM 10 MG TABLET PO SCH (20:41)
[2020-07-01] MEDS: MORPHINE 4 MG/1 ML VIAL IV PRN ×2 (00:54→04:06)
[2020-07-01] MEDS: PIPERACILLIN/TAZOBACTAM 3,375 MG in SODIUM CHLORIDE 0.9% 100 ML IV SCH ×2 (03:38→14:01)
[2020-07-01 08:12] LABS: Calcium 8.8 MG/DL (8.5-10.1)
[2020-07-01] MEDS: POTASSIUM CHLORIDE 10 MEQ TABLET PO SCH (09:02)
[2020-07-01] MEDS: PANTOPRAZOLE 40 MG TABLET PO SCH (09:02)
[2020-07-01] MEDS: carvediloL 12.5 MG TABLET PO SCH (09:02)
[2020-07-01] MEDS: ASPIRIN EC 81 MG TABLET PO SCH (09:02)
[2020-07-01] MEDS: FUROSEMIDE 40 MG TABLET PO SCH (09:02)
[2020-07-01] MEDS: DOCUSATE SODIUM 100 MG CAPSULE PO SCH (09:03)
[2020-07-01] MEDS: FEBUXOSTAT 80 MG TABLET PO SCH (09:03)
[2020-07-01] MEDS: TICAGRELOR 90 MG TABLET PO SCH (09:03)
[2020-07-01] MEDS: INSULIN LISPRO 100 UNIT/ML SUBCUT SCH ×2 (09:15→14:01)
[2020-07-01] MEDS: FLUTICASONE 50 MCG NASAL SPRAY 16 GM BOTTLE BOTH NARES SCH (09:16)
[2020-07-01] MEDS: INSULIN GLARGINE 100 UNIT/ML SUBCUT SCH (09:16)
[2020-07-01] MEDS: TIMOLOL 0.5% OPH SOLN 5 ML BOTTLE RIGHT EYE SCH (09:16)
[2020-07-01 11:38] VITALS: BP 101/64
== END 2020-07-01 13:47 | DRG 689 ==
LOC: EDUNIT# → N.ED 19:29 → N.EDINP 19:29 → N.TELEN 23:02
PROVIDERS: ADMIT Family Medicine; ATTEND Family Medicine

== ENCOUNTER 2021-03-17 13:50 | Inpatient (IN) ==
[2021-03-17] MEDS ORDERED: SODIUM CHLORIDE 0.9% 1,000 ML IV STA (13:58)
[2021-03-17] MEDS ORDERED: cefTRIAXone 2,000 MG in SODIUM CHLORIDE 0.9% 100 ML IV ONE (14:00)
[2021-03-17] MEDS ORDERED: cefTRIAXone 1,000 MG VIAL ONE (14:05)
[2021-03-17] MEDS ORDERED: VANCOMYCIN INJ 1,500 MG in SODIUM CHLORIDE 0.9% 500 ML IV STA (14:13)
[2021-03-17] MEDS ORDERED: VANCOMYCIN INJ 2,000 MG in SODIUM CHLORIDE 0.9% 500 ML IV STA (14:34)
[2021-03-17] MEDS ORDERED: GLUCAGON 1 MG VIAL IM PRN (14:45)
[2021-03-17] MEDS ORDERED: DEXTROSE 50% 25 GM/50 ML VIAL IV PRN (14:45)
[2021-03-17] MEDS ORDERED: NITROGLYCERIN SL 0.4 MG TABLET SL PRN (14:48)
[2021-03-17 14:51] LABS: Basophils % 0.2 % (0.0-0.8); Hematocrit 44.5 VOL% (42.0-52.0); Hemoglobin 14.6 GM/DL (14.0-18.0); Immature Granulocytes % 1.8 %; Immature Granulocytes Absolute 0.23 #; Lymphocytes # 0.6 10*3/uL (1.4-4.0); Lymphocytes % 4.6 % (21.2-54.2); Mean Corpuscular HGB Conc 32.8 GM/DL (32-36); Mean Corpuscular Volume 92.3 FL (87-102); Mean Platelet Volume 10.8 FL (9.6-12.0); Monocytes % 5.4 % (1.7-12.7); Platelet Count 104 T/CUMM (130-400); Red Blood Count 4.82 MC/CUMM (3.8-5.5); White Blood Count 12.5 T/CUMM (4-12)
[2021-03-17 15:01] LABS: INR 1.6; PT Patient Result 17.5 SECS (10.5-12.0)
[2021-03-17 15:10] LABS: Albumin 3.7 G/DL (3.4-5.0); Bilirubin,Total 1.6 MG/DL (0.20-1.00); Calcium 8.4 MG/DL (8.5-10.1); Osmolality,Calculated 289.8 MOS/KG (273-304); Potassium 4.3 MMOL/L (3.5-5.1); Total Protein 6.5 G/DL (6.4-8.2)
[2021-03-17 15:23] LABS: Lymphocytes 7 % (20-55); Segmented Neutrophils 86 % (50-85); Total Cells Counted 100
[2021-03-17] MEDS ORDERED: VANCOMYCIN INJ 2,000 MG in SODIUM CHLORIDE 0.9% 250 ML IV SCH (15:30)
[2021-03-17] MEDS: SODIUM CHLORIDE 0.9% 1,000 ML IV SCH (15:49)
[2021-03-17] MEDS: ENOXAPARIN 30 MG/0.3 ML SYRINGE SUBCUT SCH (15:49)
[2021-03-17 16:06] LABS: Bacteria,Urine Occasional /HPF (Few); Bilirubin,Urine Negative (Negative); Blood, Urine Negative (Negative); Glucose,Urine (UA) 150 mg/dL (Negative); Hyaline Casts,Urine 6 /LPF (0-3); Ketones,Urine Negative (Negative); Mucus,Urine Occasional /LPF (Occasional); Nitrite,Urine Negative (Negative); Protein,Urine >=500 MG/DL; RBC,Urine 1 /HPF (0-4); Squamous Epithelial Cell,Urine Occasional /HPF (0-10); Urine Appearance Slightly Hazy (Clear); Urine Color Amber (Yellow); Urine Specific Gravity 1.024 (1.001-1.035); Urine Urobilinogen < 2.0 EU/DL (0.2-1.0)
[2021-03-17] MEDS: INSULIN LISPRO 100 UNIT/ML SUBCUT SCH (16:44)
[2021-03-17] MEDS ORDERED: ACETAMINOPHEN 650 MG SUPP RECTAL PRN (17:12)
[2021-03-17] MEDS: carvediloL 12.5 MG TABLET PO SCH (23:09)
[2021-03-17] MEDS: GABAPENTIN 100 MG CAPSULE PO SCH (23:09)
[2021-03-17] MEDS: ACETAMINOPHEN 325 MG TABLET PO PRN (23:09)
[2021-03-17] MEDS: ESCITALOPRAM 10 MG TABLET PO SCH (23:09)
[2021-03-17] MEDS: rOPINIRole 0.25 MG TABLET PO SCH (23:58)
[2021-03-18] MEDS: INSULIN LISPRO 100 UNIT/ML SUBCUT SCH ×5 (02:39→22:51)
[2021-03-18] MEDS: SODIUM CHLORIDE 0.9% 1,000 ML IV SCH ×2 (03:18→07:00)
[2021-03-18 07:08] LABS: Basophils % 0.2 % (0.0-0.8); Hematocrit 43.7 VOL% (42.0-52.0); Hemoglobin 13.7 GM/DL (14.0-18.0); Immature Granulocytes % 0.7 %; Immature Granulocytes Absolute 0.06 #; Lymphocytes # 0.9 10*3/uL (1.4-4.0); Lymphocytes % 10.3 % (21.2-54.2); Mean Corpuscular HGB Conc 31.4 GM/DL (32-36); Mean Corpuscular Volume 96.9 FL (87-102); Mean Platelet Volume 11.3 FL (9.6-12.0); Monocytes % 6.2 % (1.7-12.7); Neutrophils % 82.6 % (38.7-73.9); Red Blood Count 4.51 MC/CUMM (3.8-5.5)
[2021-03-18 07:13] LABS: Calcium 7.8 MG/DL (8.5-10.1); Osmolality,Calculated 289.7 MOS/KG (273-304); Platelet Count 79 T/CUMM (130-400); Potassium 4.6 MMOL/L (3.5-5.1); White Blood Count 8.5 T/CUMM (4-12)
[2021-03-18 07:26] LABS: Band Neutrophils 5 % (0-10); Lymphocytes 10 % (20-55); Platelet Estimate Decreased; Segmented Neutrophils 82 % (50-85); Total Cells Counted 100
[2021-03-18] MEDS ORDERED: VANCOMYCIN INJ 1,750 MG in SODIUM CHLORIDE 0.9% 500 ML IV ONE (08:30)
[2021-03-18] MEDS: SODIUM CHLORIDE 0.45% 1,000 ML IV SCH (08:58)
[2021-03-18] MEDS: carvediloL 12.5 MG TABLET PO SCH ×2 (09:04→21:50)
[2021-03-18] MEDS: TAMSULOSIN 0.4 MG CAPSULE PO SCH (09:05)
[2021-03-18] MEDS: GABAPENTIN 100 MG CAPSULE PO SCH ×2 (09:05→21:50)
[2021-03-18] MEDS: CLOPIDOGREL 75 MG TABLET PO SCH (09:05)
[2021-03-18] MEDS: PANTOPRAZOLE 40 MG VIAL IV SCH (09:09)
[2021-03-18] MEDS: ALUMINUM/MAGNES/SIMETH MAX STR 30 ML UDCUP PO PRN ×2 (11:38→21:55)
[2021-03-18] MEDS ORDERED: VANCOMYCIN INJ 1,500 MG in SODIUM CHLORIDE 0.9% 500 ML IV SCH (15:00)
[2021-03-18] MEDS: ENOXAPARIN 30 MG/0.3 ML SYRINGE SUBCUT SCH (15:04)
[2021-03-18] MEDS: cefTRIAXone 2,000 MG in SODIUM CHLORIDE 0.9% 100 ML IV SCH (15:08)
[2021-03-18] MEDS ORDERED: NON-FORMULARY MEDICATION (Insulin Degludec [Tresiba Flextouch U-200] 200 unit/mL (3 mL) in SUBCUT SCH (21:00)
[2021-03-18] MEDS: rOPINIRole 0.25 MG TABLET PO SCH (21:50)
[2021-03-18] MEDS: ESCITALOPRAM 10 MG TABLET PO SCH (21:50)
[2021-03-18] MEDS: ONDANSETRON 4 MG/2 ML VIAL IV PRN (22:04)
[2021-03-18] MEDS: INSULIN GLARGINE 100 UNIT/ML SUBCUT SCH (22:04)
[2021-03-19] MEDS: ONDANSETRON 4 MG/2 ML VIAL IV PRN (03:03)
[2021-03-19] MEDS: SODIUM CHLORIDE 0.45% 1,000 ML IV SCH ×2 (03:04→20:53)
[2021-03-19 05:18] LABS: Osmolality,Calculated 288.7 MOS/KG (273-304); Potassium 4.2 MMOL/L (3.5-5.1)
[2021-03-19] MEDS: INSULIN LISPRO 100 UNIT/ML SUBCUT SCH ×4 (09:53→20:28)
[2021-03-19] MEDS: TAMSULOSIN 0.4 MG CAPSULE PO SCH (09:54)
[2021-03-19] MEDS: POTASSIUM CHLORIDE 20 MEQ TABLET PO SCH (09:54)
[2021-03-19] MEDS: CLOPIDOGREL 75 MG TABLET PO SCH (09:54)
[2021-03-19] MEDS: ASPIRIN EC 81 MG TABLET PO SCH (09:54)
[2021-03-19] MEDS: carvediloL 12.5 MG TABLET PO SCH ×2 (09:54→20:28)
[2021-03-19] MEDS: GABAPENTIN 100 MG CAPSULE PO SCH ×2 (09:57→20:28)
[2021-03-19] MEDS ORDERED: VANCOMYCIN INJ 1,750 MG in SODIUM CHLORIDE 0.9% 500 ML IV ONE (10:00)
[2021-03-19] MEDS: PANTOPRAZOLE 40 MG VIAL IV SCH (10:00)
[2021-03-19] MEDS: ACETAMINOPHEN 325 MG TABLET PO PRN ×2 (10:49→22:55)
[2021-03-19] MEDS: TIMOLOL 0.5% OPH SOLN 5 ML BOTTLE RIGHT EYE SCH (12:41)
[2021-03-19] MEDS ORDERED: VANCOMYCIN INJ 1,750 MG in SODIUM CHLORIDE 0.9% 500 ML IV PRN (13:30)
[2021-03-19] MEDS: ENOXAPARIN 30 MG/0.3 ML SYRINGE SUBCUT SCH (16:33)
[2021-03-19] MEDS: cefTRIAXone 2,000 MG in SODIUM CHLORIDE 0.9% 100 ML IV SCH (16:33)
[2021-03-19] MEDS: INSULIN GLARGINE 100 UNIT/ML SUBCUT SCH (20:28)
[2021-03-19] MEDS: rOPINIRole 0.25 MG TABLET PO SCH (20:28)
[2021-03-19] MEDS: ESCITALOPRAM 10 MG TABLET PO SCH (20:28)
[2021-03-19] MEDS: TRAVOPROST 0.004% OPH SOLN 2.5 ML BOTTLE RIGHT EYE SCH (20:33)
[2021-03-20] MEDS: ASPIRIN EC 81 MG TABLET PO SCH (09:53)
[2021-03-20] MEDS: carvediloL 12.5 MG TABLET PO SCH ×2 (09:53→20:50)
[2021-03-20] MEDS: INSULIN LISPRO 100 UNIT/ML SUBCUT SCH ×4 (09:53→20:49)
[2021-03-20] MEDS: GABAPENTIN 100 MG CAPSULE PO SCH ×2 (09:54→20:50)
[2021-03-20] MEDS: TAMSULOSIN 0.4 MG CAPSULE PO SCH (09:54)
[2021-03-20] MEDS: PANTOPRAZOLE 40 MG VIAL IV SCH (09:54)
[2021-03-20] MEDS: CLOPIDOGREL 75 MG TABLET PO SCH (09:54)
[2021-03-20] MEDS: POTASSIUM CHLORIDE 20 MEQ TABLET PO SCH (09:54)
[2021-03-20] MEDS: TIMOLOL 0.5% OPH SOLN 5 ML BOTTLE RIGHT EYE SCH (09:54)
[2021-03-20] MEDS: SODIUM CHLORIDE 0.45% 1,000 ML IV SCH (10:43)
[2021-03-20] MEDS: VANCOMYCIN INJ 1,750 MG in SODIUM CHLORIDE 0.9% 500 ML IV SCH (12:02)
[2021-03-20] MEDS: cefTRIAXone 2,000 MG in SODIUM CHLORIDE 0.9% 100 ML IV SCH (15:11)
[2021-03-20] MEDS: ENOXAPARIN 30 MG/0.3 ML SYRINGE SUBCUT SCH (15:11)
[2021-03-20] MEDS: INSULIN GLARGINE 100 UNIT/ML SUBCUT SCH (20:49)
[2021-03-20] MEDS: TRAVOPROST 0.004% OPH SOLN 2.5 ML BOTTLE RIGHT EYE SCH (20:49)
[2021-03-20] MEDS: ESCITALOPRAM 10 MG TABLET PO SCH (20:50)
[2021-03-20] MEDS: rOPINIRole 0.25 MG TABLET PO SCH (20:50)
[2021-03-21] MEDS: SODIUM CHLORIDE 0.45% 1,000 ML IV SCH ×3 (00:02→17:57)
[2021-03-21] MEDS: ASPIRIN EC 81 MG TABLET PO SCH (09:20)
[2021-03-21] MEDS: CLOPIDOGREL 75 MG TABLET PO SCH (09:21)
[2021-03-21] MEDS: TAMSULOSIN 0.4 MG CAPSULE PO SCH (09:21)
[2021-03-21] MEDS: GABAPENTIN 100 MG CAPSULE PO SCH ×2 (09:21→21:57)
[2021-03-21] MEDS: carvediloL 12.5 MG TABLET PO SCH ×2 (09:21→21:53)
[2021-03-21] MEDS: POTASSIUM CHLORIDE 20 MEQ TABLET PO SCH (09:22)
[2021-03-21] MEDS: PANTOPRAZOLE 40 MG VIAL IV SCH (09:22)
[2021-03-21] MEDS: TIMOLOL 0.5% OPH SOLN 5 ML BOTTLE RIGHT EYE SCH (09:23)
[2021-03-21] MEDS: INSULIN LISPRO 100 UNIT/ML SUBCUT SCH ×4 (10:28→21:52)
[2021-03-21] MEDS: VANCOMYCIN INJ 1,750 MG in SODIUM CHLORIDE 0.9% 500 ML IV SCH (11:36)
[2021-03-21 15:23] LABS: Basophils % 0.6 % (0.0-0.8); Eosinophils # 0.2 10*3/uL (0.0-0.87); Eosinophils % 2.6 % (0.00-10.9); Hematocrit 42.9 VOL% (42.0-52.0); Hemoglobin 13.7 GM/DL (14.0-18.0); Immature Granulocytes % 4.9 %; Lymphocytes # 1.1 10*3/uL (1.4-4.0); Lymphocytes % 18.3 % (21.2-54.2); Mean Corpuscular HGB Conc 31.9 GM/DL (32-36); Mean Corpuscular Volume 94.5 FL (87-102); Mean Platelet Volume 11.2 FL (9.6-12.0); Monocytes % 6.6 % (1.7-12.7); NRBC # 0.04 10*3/uL; Platelet Count 94 T/CUMM (130-400); Red Blood Count 4.54 MC/CUMM (3.8-5.5); White Blood Count 6.2 T/CUMM (4-12)
[2021-03-21 15:40] LABS: Calcium 8.5 MG/DL (8.5-10.1); Osmolality,Calculated 285.7 MOS/KG (273-304); Potassium 4.1 MMOL/L (3.5-5.1)
[2021-03-21] MEDS: ONDANSETRON 4 MG/2 ML VIAL IV PRN ×2 (15:41→22:03)
[2021-03-21] MEDS: cefTRIAXone 2,000 MG in SODIUM CHLORIDE 0.9% 100 ML IV SCH (15:45)
[2021-03-21] MEDS: ENOXAPARIN 30 MG/0.3 ML SYRINGE SUBCUT SCH (15:47)
[2021-03-21] MEDS ORDERED: PROMETHAZINE INJ 25 MG in SODIUM CHLORIDE 0.9% 50 ML IV ONE (15:51)
[2021-03-21] MEDS: ACETAMINOPHEN 325 MG TABLET PO PRN (16:26)
[2021-03-21] MEDS: INSULIN GLARGINE 100 UNIT/ML SUBCUT SCH (21:52)
[2021-03-21] MEDS: TRAVOPROST 0.004% OPH SOLN 2.5 ML BOTTLE RIGHT EYE SCH (21:57)
[2021-03-21] MEDS: rOPINIRole 0.25 MG TABLET PO SCH (21:57)
[2021-03-21] MEDS: ESCITALOPRAM 10 MG TABLET PO SCH (21:57)
[2021-03-22] MEDS: SODIUM CHLORIDE 0.45% 1,000 ML IV SCH ×3 (05:24→17:11)
[2021-03-22] MEDS: INSULIN LISPRO 100 UNIT/ML SUBCUT SCH ×4 (08:14→22:47)
[2021-03-22] MEDS: CLOPIDOGREL 75 MG TABLET PO SCH (09:11)
[2021-03-22] MEDS: ASPIRIN EC 81 MG TABLET PO SCH (09:11)
[2021-03-22] MEDS: carvediloL 12.5 MG TABLET PO SCH ×2 (09:12→21:32)
[2021-03-22] MEDS: POTASSIUM CHLORIDE 20 MEQ TABLET PO SCH (09:12)
[2021-03-22] MEDS: TIMOLOL 0.5% OPH SOLN 5 ML BOTTLE RIGHT EYE SCH (09:12)
[2021-03-22] MEDS: GABAPENTIN 100 MG CAPSULE PO SCH ×2 (09:12→21:32)
[2021-03-22] MEDS: TAMSULOSIN 0.4 MG CAPSULE PO SCH (09:12)
[2021-03-22] MEDS: PANTOPRAZOLE 40 MG VIAL IV SCH (09:13)
[2021-03-22] MEDS: VANCOMYCIN INJ 1,750 MG in SODIUM CHLORIDE 0.9% 500 ML IV SCH (11:55)
[2021-03-22] MEDS: ENOXAPARIN 40 MG/0.4 ML SYRINGE SUBCUT SCH (14:52)
[2021-03-22] MEDS: cefTRIAXone 2,000 MG in SODIUM CHLORIDE 0.9% 100 ML IV SCH (15:35)
[2021-03-22] MEDS: TRAVOPROST 0.004% OPH SOLN 2.5 ML BOTTLE RIGHT EYE SCH (21:32)
[2021-03-22] MEDS: ESCITALOPRAM 10 MG TABLET PO SCH (21:32)
[2021-03-22] MEDS: rOPINIRole 0.25 MG TABLET PO SCH (21:32)
[2021-03-22] MEDS: INSULIN GLARGINE 100 UNIT/ML SUBCUT SCH (22:48)
[2021-03-23] MEDS: MAGNESIUM HYDROXIDE SUSP 30 ML UDCUP PO PRN ×2 (01:33→09:40)
[2021-03-23] MEDS: SODIUM CHLORIDE 0.45% 1,000 ML IV SCH ×3 (02:00→17:06)
[2021-03-23] MEDS: INSULIN LISPRO 100 UNIT/ML SUBCUT SCH ×4 (09:34→20:23)
[2021-03-23] MEDS: ASPIRIN EC 81 MG TABLET PO SCH (09:40)
[2021-03-23] MEDS: TIMOLOL 0.5% OPH SOLN 5 ML BOTTLE RIGHT EYE SCH (09:40)
[2021-03-23] MEDS: GABAPENTIN 100 MG CAPSULE PO SCH ×2 (09:40→20:21)
[2021-03-23] MEDS: carvediloL 12.5 MG TABLET PO SCH ×2 (09:40→20:21)
[2021-03-23] MEDS: POTASSIUM CHLORIDE 20 MEQ TABLET PO SCH (09:40)
[2021-03-23] MEDS: CLOPIDOGREL 75 MG TABLET PO SCH (09:40)
[2021-03-23] MEDS: TAMSULOSIN 0.4 MG CAPSULE PO SCH (09:40)
[2021-03-23] MEDS: PANTOPRAZOLE 40 MG VIAL IV SCH (10:02)
[2021-03-23] MEDS: VANCOMYCIN INJ 1,750 MG in SODIUM CHLORIDE 0.9% 500 ML IV SCH (11:35)
[2021-03-23] MEDS: ENOXAPARIN 40 MG/0.4 ML SYRINGE SUBCUT SCH (15:26)
[2021-03-23] MEDS: cefTRIAXone 2,000 MG in SODIUM CHLORIDE 0.9% 100 ML IV SCH (15:26)
[2021-03-23] MEDS: ESCITALOPRAM 10 MG TABLET PO SCH (20:21)
[2021-03-23] MEDS: rOPINIRole 0.25 MG TABLET PO SCH (20:21)
[2021-03-23] MEDS: INSULIN GLARGINE 100 UNIT/ML SUBCUT SCH (20:22)
[2021-03-23] MEDS: TRAVOPROST 0.004% OPH SOLN 2.5 ML BOTTLE RIGHT EYE SCH (20:22)
[2021-03-24 07:44] VITALS: BP 150/98
[2021-03-24] MEDS: INSULIN LISPRO 100 UNIT/ML SUBCUT SCH (08:21)
[2021-03-24] MEDS: GABAPENTIN 100 MG CAPSULE PO SCH (08:22)
[2021-03-24] MEDS: TAMSULOSIN 0.4 MG CAPSULE PO SCH (08:22)
[2021-03-24] MEDS: POTASSIUM CHLORIDE 20 MEQ TABLET PO SCH (08:22)
[2021-03-24] MEDS: CLOPIDOGREL 75 MG TABLET PO SCH (08:22)
[2021-03-24] MEDS: carvediloL 12.5 MG TABLET PO SCH (08:22)
[2021-03-24] MEDS: PANTOPRAZOLE 40 MG VIAL IV SCH (08:23)
[2021-03-24] MEDS: ASPIRIN EC 81 MG TABLET PO SCH (08:23)
[2021-03-24] MEDS: TIMOLOL 0.5% OPH SOLN 5 ML BOTTLE RIGHT EYE SCH (08:23)
[2021-03-24] MEDS: SODIUM CHLORIDE 0.45% 1,000 ML IV SCH (08:28)
== END 2021-03-24 10:45 | disposition home or self-care (01) | DRG 871 ==
LOC: EDBD → EDUNIT# → N.ED 13:50 → N.EDINP 14:45 → N.3E 16:20
PROVIDERS: ADMIT Family Medicine; ATTEND Family Medicine

== ENCOUNTER 2021-05-07 15:51 | Inpatient (IN) ==
[2021-05-07] MEDS ORDERED: ASPIRIN 325 MG TABLET PO STA ×2 (16:42→16:52)
[2021-05-07 16:59] LABS: Basophils % 0.3 % (0.0-0.8); Eosinophils % 0.3 % (0.00-10.9); Hematocrit 39.2 VOL% (42.0-52.0); Hemoglobin 12.1 GM/DL (14.0-18.0); Immature Granulocytes % 0.8 %; Immature Granulocytes Absolute 0.03 #; Lymphocytes # 0.4 10*3/uL (1.4-4.0); Lymphocytes % 10.7 % (21.2-54.2); Mean Corpuscular HGB Conc 30.9 GM/DL (32-36); Mean Corpuscular Volume 92.7 FL (87-102); Mean Platelet Volume 10.4 FL (9.6-12.0); Monocytes % 0.8 % (1.7-12.7); Neutrophils % 87.1 % (38.7-73.9); Platelet Count 128 T/CUMM (130-400); Red Blood Count 4.23 MC/CUMM (3.8-5.5); Red Cell Distribution Width 16.1 % (9.3-17.3); White Blood Count 3.7 T/CUMM (4-12)
[2021-05-07] MEDS ORDERED: ONDANSETRON 4 MG/2 ML VIAL IV ONE (17:04)
[2021-05-07] MEDS ORDERED: MORPHINE 2 MG/1 ML SYRINGE IV STA (17:04)
[2021-05-07 17:07] LABS: PT Patient Result 11.4 SECS (10.5-12.0)
[2021-05-07 17:43] LABS: Band Neutrophils 2 % (0-10); Lymphocytes 8 % (20-55); Segmented Neutrophils 89 % (50-85); Total Cells Counted 100
[2021-05-07 17:44] LABS: Anisocytosis 2+; Macrocytosis Slight; Platelet Estimate Adequate; Polychromasia Slight
[2021-05-07 18:07] LABS: Albumin 3.4 G/DL (3.4-5.0); Bilirubin,Total 0.8 MG/DL (0.20-1.00); Calcium 9.1 MG/DL (8.5-10.1); Osmolality,Calculated 308.8 MOS/KG (273-304); Potassium 4.5 MMOL/L (3.5-5.1); Total Protein 7.2 G/DL (6.4-8.2)
[2021-05-07] MEDS ORDERED: INSULIN REGULAR 100 UNIT/ML IV STA (18:10)
[2021-05-07] MEDS ORDERED: SODIUM CHLORIDE 0.9% 500 ML IV STA (18:10)
[2021-05-07 18:33] LABS: ABG Base Excess -5.2 MMOL/L (-2.5-2.5); ABG HCO3 20.2 MMOL/L (20-26); ABG Oxygen Saturation 99.3 % (95-100); ABG PCO2 29.3 MM HG (35-48); ABG PH 7.405 (7.35-7.45); ABG TCO2 16.2 MMOL/L (23-27)
[2021-05-07] MEDS ORDERED: MORPHINE 2 MG/1 ML SYRINGE IV PRN (18:41)
[2021-05-07] MEDS ORDERED: DEXTROSE 50% 25 GM/50 ML VIAL IV PRN ×2 (18:41→19:44)
[2021-05-07] MEDS ORDERED: GLUCAGON 1 MG VIAL IM PRN ×2 (18:41→19:44)
[2021-05-07] MEDS ORDERED: ONDANSETRON 4 MG/2 ML VIAL IV PRN (18:41)
[2021-05-07] MEDS ORDERED: NITROGLYCERIN SL 0.4 MG TABLET SL PRN (19:44)
[2021-05-07] MEDS ORDERED: tiZANidine 4 MG TABLET PO PRN (19:44)
[2021-05-07] MEDS: INSULIN REGULAR 100 UNIT/ML SUBCUT SCH (19:48)
[2021-05-07 20:26] LABS: Risk Ratio 6.09
[2021-05-07] MEDS ORDERED: TRAVOPROST 0.004% OPH SOLN 2.5 ML BOTTLE RIGHT EYE SCH (21:00)
[2021-05-07] MEDS: SODIUM CHLORIDE 0.9% 1,000 ML IV SCH (22:02)
[2021-05-07] MEDS: INSULIN GLARGINE 100 UNIT/ML SUBCUT SCH (22:09)
[2021-05-07] MEDS: carvediloL 12.5 MG TABLET PO SCH (22:10)
[2021-05-07] MEDS: ESCITALOPRAM 10 MG TABLET PO SCH (22:10)
[2021-05-07] MEDS: GABAPENTIN 100 MG CAPSULE PO SCH ×2 (22:10→22:11)
[2021-05-07] MEDS: rOPINIRole 0.25 MG TABLET PO SCH (22:10)
[2021-05-07] MEDS: ENOXAPARIN 100 MG/ML SYRINGE SUBCUT SCH (22:10)
[2021-05-07] MEDS: TRAVOPROST 0.004% OPH SOLN 2.5 ML BOTTLE RIGHT EYE SCH (22:10)
[2021-05-08] MEDS: INSULIN REGULAR 100 UNIT/ML SUBCUT SCH ×7 (01:10→23:01)
[2021-05-08 06:37] LABS: Basophils % 0.1 % (0.0-0.8); Hematocrit 35.2 VOL% (42.0-52.0); Hemoglobin 11.5 GM/DL (14.0-18.0); Immature Granulocytes % 0.3 %; Immature Granulocytes Absolute 0.02 #; Lymphocytes # 0.5 10*3/uL (1.4-4.0); Mean Corpuscular HGB Conc 32.7 GM/DL (32-36); Mean Platelet Volume 11.5 FL (9.6-12.0); Monocytes % 6.1 % (1.7-12.7); Neutrophils % 86.5 % (38.7-73.9); Platelet Count 108 T/CUMM (130-400); Red Blood Count 3.91 MC/CUMM (3.8-5.5); White Blood Count 7.7 T/CUMM (4-12)
[2021-05-08 07:02] LABS: Risk Ratio 6.95; VLDL Cholesterol 98.4 MG/DL
[2021-05-08 07:06] LABS: Albumin 3.3 G/DL (3.4-5.0); Bilirubin,Total 0.8 MG/DL (0.20-1.00); Calcium 9.2 MG/DL (8.5-10.1); Osmolality,Calculated 295.8 MOS/KG (273-304); Total Protein 6.7 G/DL (6.4-8.2)
[2021-05-08] MEDS ORDERED: CLOPIDOGREL 75 MG TABLET PO SCH (09:00)
[2021-05-08] MEDS: CLOPIDOGREL 75 MG TABLET PO SCH (10:23)
[2021-05-08] MEDS: TAMSULOSIN 0.4 MG CAPSULE PO SCH (10:23)
[2021-05-08] MEDS: GABAPENTIN 100 MG CAPSULE PO SCH ×3 (10:24→20:34)
[2021-05-08] MEDS: carvediloL 12.5 MG TABLET PO SCH ×2 (10:24→20:34)
[2021-05-08] MEDS: INSULIN GLARGINE 100 UNIT/ML SUBCUT SCH ×2 (10:25→20:40)
[2021-05-08] MEDS: PANTOPRAZOLE 40 MG VIAL IV SCH (10:31)
[2021-05-08] MEDS: ENOXAPARIN 100 MG/ML SYRINGE SUBCUT SCH ×2 (10:45→20:54)
[2021-05-08] MEDS: SODIUM CHLORIDE 0.9% 1,000 ML IV SCH ×2 (10:46→23:05)
[2021-05-08] MEDS ORDERED: LIDOCAINE 1% 20 ML VIAL ONE (11:10)
[2021-05-08] MEDS ORDERED: HEPARIN/NACL 0.9% 2 UNITS/ML 2,000 UNIT/1,000 ML BAG IV ONE (11:10)
[2021-05-08] MEDS ORDERED: fentaNYL 100 MCG/2 ML VIAL ONE (11:22)
[2021-05-08] MEDS ORDERED: MIDAZOLAM 2 MG/2 ML VIAL ONE ×2 (11:22→12:15)
[2021-05-08] MEDS ORDERED: HEPARIN 5,000 UNIT/1 ML VIAL ONE ×2 (11:47→12:25)
[2021-05-08] MEDS ORDERED: diphenhydrAMINE CAP 50 MG CAPSULE PO ONE (12:00)
[2021-05-08] MEDS ORDERED: DIAZEPAM 5 MG TABLET PO ONE (12:00)
[2021-05-08] MEDS ORDERED: HEPARIN/NACL 0.9% 2 UNITS/ML 1,000 UNIT/500 ML BAG IV ONE (12:01)
[2021-05-08] MEDS ORDERED: HYDROmorphone 2 MG/1 ML VIAL ONE (12:21)
[2021-05-08] MEDS ORDERED: CLOPIDOGREL 300 MG TABLET ONE (12:42)
[2021-05-08] MEDS: TIMOLOL 0.5% OPH SOLN 5 ML BOTTLE RIGHT EYE SCH (18:26)
[2021-05-08] MEDS: TRAVOPROST 0.004% OPH SOLN 2.5 ML BOTTLE RIGHT EYE SCH (20:32)
[2021-05-08] MEDS: rOPINIRole 0.25 MG TABLET PO SCH (20:33)
[2021-05-08] MEDS: ESCITALOPRAM 10 MG TABLET PO SCH (20:34)
[2021-05-09] MEDS: INSULIN REGULAR 100 UNIT/ML SUBCUT SCH ×3 (04:15→11:45)
[2021-05-09 06:05] LABS: Basophils % 0.3 % (0.0-0.8); Eosinophils # 0.1 10*3/uL (0.0-0.87); Eosinophils % 0.9 % (0.00-10.9); Hematocrit 34.6 VOL% (42.0-52.0); Hemoglobin 10.4 GM/DL (14.0-18.0); Immature Granulocytes % 0.8 %; Immature Granulocytes Absolute 0.06 #; Lymphocytes # 1.3 10*3/uL (1.4-4.0); Lymphocytes % 17.5 % (21.2-54.2); Mean Corpuscular HGB Conc 30.1 GM/DL (32-36); Mean Corpuscular Volume 92.5 FL (87-102); Mean Platelet Volume 11.3 FL (9.6-12.0); Monocytes % 6.1 % (1.7-12.7); Neutrophils % 74.4 % (38.7-73.9); Red Blood Count 3.74 MC/CUMM (3.8-5.5); Red Cell Distribution Width 16.7 % (9.3-17.3); White Blood Count 7.4 T/CUMM (4-12)
[2021-05-09 06:19] LABS: Platelet Count 97 T/CUMM (130-400)
[2021-05-09 06:20] LABS: Calcium 9.2 MG/DL (8.5-10.1); Osmolality,Calculated 288.1 MOS/KG (273-304); Potassium 3.5 MMOL/L (3.5-5.1)
[2021-05-09 06:37] LABS: Hypochromasia 1+; Microcytosis 1+; Ovalocytes Slight
[2021-05-09 06:38] LABS: Platelet Estimate Decreased
[2021-05-09] MEDS: INSULIN GLARGINE 100 UNIT/ML SUBCUT SCH (09:30)
[2021-05-09] MEDS ORDERED: ASPIRIN EC 81 MG TABLET PO SCH (09:30)
[2021-05-09] MEDS: CLOPIDOGREL 75 MG TABLET PO SCH (09:30)
[2021-05-09] MEDS: carvediloL 12.5 MG TABLET PO SCH (09:30)
[2021-05-09] MEDS: GABAPENTIN 100 MG CAPSULE PO SCH (09:30)
[2021-05-09] MEDS: PANTOPRAZOLE 40 MG VIAL IV SCH (09:30)
[2021-05-09] MEDS: TAMSULOSIN 0.4 MG CAPSULE PO SCH (09:30)
[2021-05-09] MEDS ORDERED: ENOXAPARIN 40 MG/0.4 ML SYRINGE SUBCUT SCH (09:30)
[2021-05-09] MEDS: ENOXAPARIN 100 MG/ML SYRINGE SUBCUT SCH (11:44)
[2021-05-09] MEDS: TIMOLOL 0.5% OPH SOLN 5 ML BOTTLE RIGHT EYE SCH (12:05)
[2021-05-09 12:16] VITALS: BP 144/80
== END 2021-05-09 14:02 | disposition home or self-care (01) | DRG 246 ==
LOC: N.ED 15:51 → N.EDINP 18:40 → N.TELEN 21:31
PROVIDERS: ADMIT Family Medicine; ATTEND Family Medicine
PROC: CLCCHCL (ICD-10-PCS; 2021-05-08 11:45)

== ENCOUNTER 2021-05-12 07:33 | Inpatient (IN) ==
[2021-05-12] MEDS ORDERED: MORPHINE 2 MG/1 ML SYRINGE IV STA (07:55)
[2021-05-12] MEDS ORDERED: NITROGLYCERIN DRIP 50 MG/250 ML BOTTLE IV PRN (07:55)
[2021-05-12] MEDS ORDERED: ONDANSETRON 4 MG/2 ML VIAL IV STA (07:55)
[2021-05-12] MEDS ORDERED: HEPARIN 5,000 UNIT/1 ML VIAL IV ONE (07:56)
[2021-05-12 08:04] LABS: Basophils # 0.1 10*3/uL (0.0-0.2); Basophils % 0.8 % (0.0-0.8); Eosinophils # 0.1 10*3/uL (0.0-0.87); Eosinophils % 2.3 % (0.00-10.9); Hematocrit 35.9 VOL% (42.0-52.0); Hemoglobin 11.7 GM/DL (14.0-18.0); Immature Granulocytes % 3.9 %; Immature Granulocytes Absolute 0.24 #; Lymphocytes # 1.4 10*3/uL (1.4-4.0); Lymphocytes % 22.2 % (21.2-54.2); Mean Corpuscular HGB Conc 32.6 GM/DL (32-36); Mean Corpuscular Volume 89.5 FL (87-102); Mean Platelet Volume 11.3 FL (9.6-12.0); Monocytes % 9.9 % (1.7-12.7); Neutrophils % 60.9 % (38.7-73.9); Platelet Count 127 T/CUMM (130-400); Red Blood Count 4.01 MC/CUMM (3.8-5.5); Red Cell Distribution Width 16.1 % (9.3-17.3); White Blood Count 6.2 T/CUMM (4-12)
[2021-05-12 08:14] LABS: PT Patient Result 10.9 SECS (10.5-12.0); Partial Thromboplastin Time 23.1 SECS (23.9-33.8)
[2021-05-12] MEDS ORDERED: SODIUM CHLORIDE 0.9% 1,000 ML IV STA (08:20)
[2021-05-12 08:27] LABS: Albumin 3.5 G/DL (3.4-5.0); Bilirubin,Total 2.1 MG/DL (0.20-1.00); Calcium 9.8 MG/DL (8.5-10.1); Osmolality,Calculated 289.8 MOS/KG (273-304); Potassium 3.7 MMOL/L (3.5-5.1); Total Protein 6.5 G/DL (6.4-8.2)
[2021-05-12] MEDS ORDERED: ACETAMINOPHEN 325 MG TABLET PO PRN (09:20)
[2021-05-12] MEDS ORDERED: ONDANSETRON 4 MG/2 ML VIAL IV PRN (09:20)
[2021-05-12] MEDS ORDERED: ALUM/MAG/SIMETH/LIDO VISC 1:1 30 ML BOTTLE PO STA (10:02)
[2021-05-12] MEDS: carvediloL 12.5 MG TABLET PO SCH ×2 (15:05→20:28)
[2021-05-12] MEDS: CLOPIDOGREL 75 MG TABLET PO SCH (15:05)
[2021-05-12] MEDS ORDERED: DIAZEPAM 5 MG TABLET PO ONE (15:15)
[2021-05-12] MEDS ORDERED: MAGNESIUM SULF RIDER 2 GM/50 ML PREMIX IV PRN (15:15)
[2021-05-12] MEDS ORDERED: diphenhydrAMINE CAP 25 MG CAPSULE PO ONE (15:15)
[2021-05-12] MEDS ORDERED: CLOPIDOGREL 300 MG TABLET PO ONE (15:19)
[2021-05-12] MEDS ORDERED: HEPARIN/NACL 0.9% 2 UNITS/ML 2,000 UNIT/1,000 ML BAG IV ONE (15:22)
[2021-05-12] MEDS ORDERED: LIDOCAINE 1% 20 ML VIAL ONE (15:22)
[2021-05-12] MEDS ORDERED: DIAZEPAM 5 MG TABLET ONE (15:23)
[2021-05-12] MEDS ORDERED: diphenhydrAMINE CAP 50 MG CAPSULE ONE (15:23)
[2021-05-12] MEDS ORDERED: SODIUM CHLORIDE 0.45% 1,000 ML IV SCH (15:30)
[2021-05-12] MEDS ORDERED: MIDAZOLAM 2 MG/2 ML VIAL ONE (15:48)
[2021-05-12] MEDS ORDERED: fentaNYL 100 MCG/2 ML VIAL ONE (15:48)
[2021-05-12] MEDS ORDERED: HEPARIN 5,000 UNIT/1 ML VIAL ONE (16:12)
[2021-05-12] MEDS ORDERED: HEPARIN/NACL 0.9% 2 UNITS/ML 1,000 UNIT/500 ML BAG IV ONE (16:19)
[2021-05-12] MEDS ORDERED: TIROFIBAN 5,000 MCG/100 ML PREMIX IV ONE (16:20)
[2021-05-12] MEDS ORDERED: CLOPIDOGREL 300 MG TABLET ONE (16:44)
[2021-05-12] MEDS: DOCUSATE SODIUM 100 MG CAPSULE PO SCH (20:28)
[2021-05-12] MEDS: ATORVASTATIN 40 MG TABLET PO SCH (20:29)
[2021-05-13] MEDS ORDERED: NITROGLYCERIN SL 0.4 MG TABLET SL PRN (06:22)
[2021-05-13] MEDS ORDERED: ACETAMINOPHEN 325 MG TABLET PO PRN (06:22)
[2021-05-13] MEDS ORDERED: tiZANidine 4 MG TABLET PO PRN (06:22)
[2021-05-13] MEDS ORDERED: ALUMINUM/MAGNES/SIMETH MAX STR 30 ML UDCUP PO PRN (06:22)
[2021-05-13 07:15] LABS: Basophils % 0.5 % (0.0-0.8); Eosinophils # 0.2 10*3/uL (0.0-0.87); Eosinophils % 2.3 % (0.00-10.9); Hematocrit 36.2 VOL% (42.0-52.0); Hemoglobin 11.3 GM/DL (14.0-18.0); Immature Granulocytes % 1.9 %; Immature Granulocytes Absolute 0.15 #; Lymphocytes # 1.2 10*3/uL (1.4-4.0); Mean Corpuscular HGB Conc 31.2 GM/DL (32-36); Mean Corpuscular Volume 92.3 FL (87-102); Mean Platelet Volume 11.8 FL (9.6-12.0); Neutrophils % 71.3 % (38.7-73.9); Platelet Count 102 T/CUMM (130-400); Red Blood Count 3.92 MC/CUMM (3.8-5.5); Red Cell Distribution Width 16.6 % (9.3-17.3); White Blood Count 7.9 T/CUMM (4-12)
[2021-05-13 07:36] LABS: Hypochromasia 1+; Microcytosis 1+; Platelet Estimate Decreased
[2021-05-13 07:57] LABS: Osmolality,Calculated 284.7 MOS/KG (273-304); Potassium 3.8 MMOL/L (3.5-5.1)
[2021-05-13] MEDS ORDERED: DEXTROSE 50% 25 GM/50 ML VIAL IV PRN (08:01)
[2021-05-13] MEDS ORDERED: GLUCAGON 1 MG VIAL IM PRN (08:01)
[2021-05-13] MEDS: DAPAGLIFLOZIN 5 MG TABLET PO SCH (12:14)
[2021-05-13] MEDS: VALSARTAN 80 MG TABLET PO SCH (12:14)
[2021-05-13] MEDS: ASPIRIN EC 81 MG TABLET PO SCH (12:14)
[2021-05-13] MEDS: TAMSULOSIN 0.4 MG CAPSULE PO SCH (12:15)
[2021-05-13] MEDS: FEBUXOSTAT 80 MG TABLET PO SCH (12:15)
[2021-05-13] MEDS: CLOPIDOGREL 75 MG TABLET PO SCH (12:15)
[2021-05-13] MEDS: carvediloL 12.5 MG TABLET PO SCH ×2 (12:15→20:23)
[2021-05-13] MEDS: DOCUSATE SODIUM 100 MG CAPSULE PO SCH ×2 (12:16→20:22)
[2021-05-13] MEDS: PANTOPRAZOLE 40 MG TABLET PO SCH (12:16)
[2021-05-13] MEDS: POTASSIUM CHLORIDE 20 MEQ TABLET PO SCH (12:16)
[2021-05-13] MEDS: INSULIN GLARGINE 100 UNIT/ML SUBCUT SCH (12:17)
[2021-05-13] MEDS: GABAPENTIN 100 MG CAPSULE PO SCH ×2 (12:17→20:22)
[2021-05-13] MEDS: FUROSEMIDE 40 MG TABLET PO SCH (12:17)
[2021-05-13] MEDS: TIMOLOL 0.5% OPH SOLN 5 ML BOTTLE RIGHT EYE SCH (12:17)
[2021-05-13] MEDS: INSULIN LISPRO 100 UNIT/ML SUBCUT SCH ×3 (12:18→20:23)
[2021-05-13] MEDS: ATORVASTATIN 40 MG TABLET PO SCH (20:23)
[2021-05-13] MEDS ORDERED: TRAVOPROST 0.004% OPH SOLN 2.5 ML BOTTLE RIGHT EYE SCH (21:00)
[2021-05-13] MEDS ORDERED: rOPINIRole 0.25 MG TABLET PO SCH (21:00)
[2021-05-13] MEDS ORDERED: ESCITALOPRAM 10 MG TABLET PO SCH (21:00)
[2021-05-13] MEDS ORDERED: INSULIN GLARGINE 100 UNIT/ML SUBCUT SCH (21:00)
[2021-05-14 07:14] LABS: Calcium 8.8 MG/DL (8.5-10.1); Osmolality,Calculated 286.5 MOS/KG (273-304); Potassium 3.9 MMOL/L (3.5-5.1)
[2021-05-14] MEDS: INSULIN LISPRO 100 UNIT/ML SUBCUT SCH (07:38)
[2021-05-14 08:10] VITALS: BP 100/66
[2021-05-14] MEDS: FEBUXOSTAT 80 MG TABLET PO SCH (09:30)
[2021-05-14] MEDS: VALSARTAN 80 MG TABLET PO SCH (09:30)
[2021-05-14] MEDS: ASPIRIN EC 81 MG TABLET PO SCH (09:30)
[2021-05-14] MEDS: carvediloL 12.5 MG TABLET PO SCH (09:30)
[2021-05-14] MEDS: FUROSEMIDE 40 MG TABLET PO SCH (09:31)
[2021-05-14] MEDS: GABAPENTIN 100 MG CAPSULE PO SCH (09:31)
[2021-05-14] MEDS: PANTOPRAZOLE 40 MG TABLET PO SCH (09:31)
[2021-05-14] MEDS: CLOPIDOGREL 75 MG TABLET PO SCH (09:31)
[2021-05-14] MEDS: TAMSULOSIN 0.4 MG CAPSULE PO SCH (09:31)
[2021-05-14] MEDS: DAPAGLIFLOZIN 5 MG TABLET PO SCH (09:31)
[2021-05-14] MEDS: POTASSIUM CHLORIDE 20 MEQ TABLET PO SCH (09:31)
[2021-05-14] MEDS: DOCUSATE SODIUM 100 MG CAPSULE PO SCH (09:31)
[2021-05-14] MEDS: TIMOLOL 0.5% OPH SOLN 5 ML BOTTLE RIGHT EYE SCH (09:32)
[2021-05-14] MEDS: INSULIN GLARGINE 100 UNIT/ML SUBCUT SCH (09:32)
== END 2021-05-14 11:31 | disposition home health service (06) | DRG 250 ==
LOC: EDBD → EDUNIT# → N.ED 07:33 → N.EDINP 09:20 → SUATTDRO 09:20 → N.EDINP 10:58 → N.TELES 11:34
PROVIDERS: ADMIT Family Medicine; ATTEND Family Medicine

== ENCOUNTER 2021-06-15 13:44 | Inpatient (IN) ==
[2021-06-15] MEDS ORDERED: FUROSEMIDE 100 MG/10 ML VIAL IV STA (15:03)
[2021-06-15 15:29] LABS: Basophils # 0.1 10*3/uL (0.0-0.2); Basophils % 0.6 % (0.0-0.8); Eosinophils # 0.1 10*3/uL (0.0-0.87); Eosinophils % 1.6 % (0.00-10.9); Hematocrit 40.5 VOL% (42.0-52.0); Hemoglobin 12.4 GM/DL (14.0-18.0); Immature Granulocytes % 0.5 %; Immature Granulocytes Absolute 0.04 #; Lymphocytes # 0.9 10*3/uL (1.4-4.0); Lymphocytes % 11.5 % (21.2-54.2); Mean Corpuscular HGB Conc 30.6 GM/DL (32-36); Mean Corpuscular Volume 95.5 FL (87-102); Mean Platelet Volume 11.5 FL (9.6-12.0); Monocytes % 6.5 % (1.7-12.7); Neutrophils % 79.3 % (38.7-73.9); Platelet Count 75 T/CUMM (130-400); Red Blood Count 4.24 MC/CUMM (3.8-5.5); Red Cell Distribution Width 17.1 % (9.3-17.3); White Blood Count 8.2 T/CUMM (4-12)
[2021-06-15 15:55] LABS: Albumin 3.2 G/DL (3.4-5.0); Bilirubin,Total 1.1 MG/DL (0.20-1.00); Calcium 8.9 MG/DL (8.5-10.1); Osmolality,Calculated 297.4 MOS/KG (273-304); Thyroid Stimulating Hormone 2.35 uIU/ml (0.358-3.74); Total Protein 6.3 G/DL (6.4-8.2)
[2021-06-15 16:15] LABS: Bacteria,Urine Occasional /HPF (Few); Bilirubin,Urine Negative (Negative); Blood, Urine Negative (Negative); Glucose,Urine (UA) Negative (Negative); Hyaline Casts,Urine 7 /LPF (0-3); Ketones,Urine Negative (Negative); Nitrite,Urine Negative (Negative); Protein,Urine Negative; RBC,Urine 2 /HPF (0-4); Squamous Epithelial Cell,Urine Occasional /HPF (0-10); Urine Appearance CLEAR (Clear); Urine Color Yellow (Yellow); Urine Specific Gravity 1.017 (1.001-1.035); Urine Urobilinogen < 2.0 EU/DL (0.2-1.0)
[2021-06-15] MEDS ORDERED: ACETAMINOPHEN 325 MG TABLET PO PRN (17:59)
[2021-06-15] MEDS ORDERED: MAGNESIUM HYDROXIDE SUSP 30 ML UDCUP PO PRN (17:59)
[2021-06-15] MEDS ORDERED: ACETAMINOPHEN/CODEINE 300-30 MG TABLET PO PRN (17:59)
[2021-06-15] MEDS: ENOXAPARIN 30 MG/0.3 ML SYRINGE SUBCUT SCH (23:05)
[2021-06-16] MEDS: ONDANSETRON 4 MG/2 ML VIAL IV PRN ×4 (02:13→22:12)
[2021-06-16 05:28] LABS: Basophils % 0.3 % (0.0-0.8); Eosinophils # 0.1 10*3/uL (0.0-0.87); Hematocrit 39.6 VOL% (42.0-52.0); Hemoglobin 11.9 GM/DL (14.0-18.0); Immature Granulocytes % 0.5 %; Immature Granulocytes Absolute 0.04 #; Lymphocytes % 13.3 % (21.2-54.2); Mean Corpuscular HGB Conc 30.1 GM/DL (32-36); Mean Corpuscular Volume 95.2 FL (87-102); Mean Platelet Volume 11.2 FL (9.6-12.0); Monocytes % 7.2 % (1.7-12.7); Neutrophils % 77.7 % (38.7-73.9); Platelet Count 74 T/CUMM (130-400); Red Blood Count 4.16 MC/CUMM (3.8-5.5); White Blood Count 7.8 T/CUMM (4-12)
[2021-06-16 05:56] LABS: Calcium 8.7 MG/DL (8.5-10.1); Osmolality,Calculated 298.3 MOS/KG (273-304); Platelet Estimate Decreased; Potassium 3.7 MMOL/L (3.5-5.1)
[2021-06-16] MEDS ORDERED: tiZANidine 4 MG TABLET PO PRN (08:40)
[2021-06-16] MEDS ORDERED: NITROGLYCERIN SL 0.4 MG TABLET SL PRN (08:40)
[2021-06-16] MEDS ORDERED: ALUMINUM/MAGNES/SIMETH MAX STR 30 ML UDCUP PO PRN (08:40)
[2021-06-16] MEDS: FUROSEMIDE 40 MG/4 ML VIAL IV SCH ×2 (09:57→16:41)
[2021-06-16] MEDS ORDERED: LIDOCAINE 2% TOP JELLY 20 ML VIAL INTRAURETH ONE (10:19)
[2021-06-16] MEDS: ASPIRIN EC 81 MG TABLET PO SCH ×2 (10:35→16:41)
[2021-06-16] MEDS: carvediloL 12.5 MG TABLET PO SCH ×2 (10:35→22:11)
[2021-06-16] MEDS: CLOPIDOGREL 75 MG TABLET PO SCH ×2 (10:36→16:41)
[2021-06-16] MEDS: TAMSULOSIN 0.4 MG CAPSULE PO SCH (10:36)
[2021-06-16] MEDS: FEBUXOSTAT 80 MG TABLET PO SCH (10:36)
[2021-06-16] MEDS: PANTOPRAZOLE 40 MG TABLET PO SCH (10:36)
[2021-06-16] MEDS: GABAPENTIN 100 MG CAPSULE PO SCH ×2 (10:36→22:11)
[2021-06-16] MEDS: DAPAGLIFLOZIN 5 MG TABLET PO SCH (10:36)
[2021-06-16] MEDS: TIMOLOL 0.5% OPH SOLN 5 ML BOTTLE RIGHT EYE SCH (10:36)
[2021-06-16] MEDS: ENOXAPARIN 30 MG/0.3 ML SYRINGE SUBCUT SCH (17:23)
[2021-06-16] MEDS: ESCITALOPRAM 10 MG TABLET PO SCH (22:10)
[2021-06-16] MEDS: rOPINIRole 0.25 MG TABLET PO SCH (22:10)
[2021-06-16] MEDS: SACUBITRIL/VALSARTAN 49-51 MG TABLET PO SCH (22:11)
[2021-06-16] MEDS: TRAVOPROST 0.004% OPH SOLN 2.5 ML BOTTLE RIGHT EYE SCH (22:11)
[2021-06-16] MEDS: ATORVASTATIN 40 MG TABLET PO SCH (22:12)
[2021-06-16] MEDS: INSULIN GLARGINE 100 UNIT/ML SUBCUT SCH (23:46)
[2021-06-16] MEDS: HYDROmorphone 2 MG/1 ML VIAL IV PRN (23:47)
[2021-06-17] MEDS: GABAPENTIN 100 MG CAPSULE PO SCH ×2 (08:55→21:03)
[2021-06-17] MEDS: CLOPIDOGREL 75 MG TABLET PO SCH (08:55)
[2021-06-17] MEDS: FUROSEMIDE 40 MG/4 ML VIAL IV SCH ×2 (08:55→15:39)
[2021-06-17] MEDS: TAMSULOSIN 0.4 MG CAPSULE PO SCH (08:55)
[2021-06-17] MEDS: DAPAGLIFLOZIN 5 MG TABLET PO SCH (08:55)
[2021-06-17] MEDS: ASPIRIN EC 81 MG TABLET PO SCH (08:55)
[2021-06-17] MEDS: PANTOPRAZOLE 40 MG TABLET PO SCH (08:55)
[2021-06-17] MEDS: FEBUXOSTAT 80 MG TABLET PO SCH (08:55)
[2021-06-17] MEDS: SACUBITRIL/VALSARTAN 49-51 MG TABLET PO SCH ×2 (08:55→21:03)
[2021-06-17] MEDS: carvediloL 12.5 MG TABLET PO SCH ×2 (08:55→21:04)
[2021-06-17] MEDS: TIMOLOL 0.5% OPH SOLN 5 ML BOTTLE RIGHT EYE SCH (08:56)
[2021-06-17] MEDS: HYDROmorphone 2 MG/1 ML VIAL IV PRN (12:14)
[2021-06-17] MEDS: ENOXAPARIN 30 MG/0.3 ML SYRINGE SUBCUT SCH (17:04)
[2021-06-17] MEDS: ATORVASTATIN 40 MG TABLET PO SCH (21:03)
[2021-06-17] MEDS: ESCITALOPRAM 10 MG TABLET PO SCH (21:03)
[2021-06-17] MEDS: rOPINIRole 0.25 MG TABLET PO SCH (21:04)
[2021-06-17] MEDS: INSULIN GLARGINE 100 UNIT/ML SUBCUT SCH (21:05)
[2021-06-17] MEDS: TRAVOPROST 0.004% OPH SOLN 2.5 ML BOTTLE RIGHT EYE SCH (21:06)
[2021-06-18 06:07] LABS: Basophils % 0.4 % (0.0-0.8); Eosinophils # 0.2 10*3/uL (0.0-0.87); Eosinophils % 3.3 % (0.00-10.9); Hematocrit 38.5 VOL% (42.0-52.0); Hemoglobin 11.7 GM/DL (14.0-18.0); Immature Granulocytes % 0.4 %; Immature Granulocytes Absolute 0.02 #; Lymphocytes % 22.9 % (21.2-54.2); Mean Corpuscular HGB Conc 30.4 GM/DL (32-36); Mean Corpuscular Volume 95.5 FL (87-102); Mean Platelet Volume 10.9 FL (9.6-12.0); Monocytes % 10.4 % (1.7-12.7); Neutrophils % 62.6 % (38.7-73.9); Platelet Count 62 T/CUMM (130-400); Red Blood Count 4.03 MC/CUMM (3.8-5.5); Red Cell Distribution Width 16.6 % (9.3-17.3); White Blood Count 4.5 T/CUMM (4-12)
[2021-06-18 06:21] LABS: Calcium 8.8 MG/DL (8.5-10.1); Osmolality,Calculated 294.3 MOS/KG (273-304); Potassium 3.2 MMOL/L (3.5-5.1)
[2021-06-18 06:26] LABS: Calcium 9.3 MG/DL (8.5-10.1); Osmolality,Calculated 296.1 MOS/KG (273-304); Potassium 3.3 MMOL/L (3.5-5.1)
[2021-06-18 06:41] LABS: Platelet Estimate Decreased
[2021-06-18 07:52] VITALS: BP 99/73
[2021-06-18] MEDS ORDERED: POTASSIUM CHLORIDE 20 MEQ TABLET PO ONE ×2 (08:30→10:00)
[2021-06-18] MEDS: FUROSEMIDE 40 MG/4 ML VIAL IV SCH (09:09)
[2021-06-18] MEDS: FEBUXOSTAT 80 MG TABLET PO SCH (09:14)
[2021-06-18] MEDS: CLOPIDOGREL 75 MG TABLET PO SCH (09:14)
[2021-06-18] MEDS: ASPIRIN EC 81 MG TABLET PO SCH (09:14)
[2021-06-18] MEDS: GABAPENTIN 100 MG CAPSULE PO SCH (09:15)
[2021-06-18] MEDS: TAMSULOSIN 0.4 MG CAPSULE PO SCH (09:15)
[2021-06-18] MEDS: DAPAGLIFLOZIN 5 MG TABLET PO SCH (09:15)
[2021-06-18] MEDS: carvediloL 12.5 MG TABLET PO SCH (09:15)
[2021-06-18] MEDS: PANTOPRAZOLE 40 MG TABLET PO SCH (09:15)
[2021-06-18] MEDS: SACUBITRIL/VALSARTAN 49-51 MG TABLET PO SCH (09:15)
[2021-06-18] MEDS: TIMOLOL 0.5% OPH SOLN 5 ML BOTTLE RIGHT EYE SCH (09:15)
[2021-06-18] MEDS ORDERED: FUROSEMIDE 80 MG TABLET PO SCH (16:00)
== END 2021-06-18 10:50 | disposition home health service (06) | DRG 729 ==
LOC: N.ED 13:44 → N.EDINP 17:59 → N.5E 19:39
PROVIDERS: ADMIT Family Medicine; ATTEND Family Medicine

== ENCOUNTER 2021-10-07 12:18 | Inpatient (IN) ==
[2021-10-07] MEDS ORDERED: ACETAMINOPHEN 325 MG TABLET PO PRN (13:16)
[2021-10-07] MEDS ORDERED: ONDANSETRON 4 MG/2 ML VIAL IV PRN (13:16)
[2021-10-07] MEDS ORDERED: DEXTROSE 10% 250 ML BAG IV PRN (13:16)
[2021-10-07] MEDS ORDERED: GLUCAGON 1 MG VIAL IM PRN (13:16)
[2021-10-07] MEDS ORDERED: ALUMINUM/MAGNES/SIMETH MAX STR 30 ML UDCUP PO PRN (13:27)
[2021-10-07] MEDS ORDERED: SODIUM CHLORIDE 0.45% 1,000 ML IV SCH (13:30)
[2021-10-07] MEDS ORDERED: NITROGLYCERIN SL 0.4 MG TABLET SL PRN (13:32)
[2021-10-07 15:46] LABS: Basophils % 0.4 % (0.0-0.8); Eosinophils # 0.7 10*3/uL (0.0-0.87); Eosinophils % 6.3 % (0.00-10.9); Hematocrit 33.1 VOL% (42.0-52.0); Hemoglobin 10.8 GM/DL (14.0-18.0); Immature Granulocytes % 0.9 %; Lymphocytes % 8.8 % (21.2-54.2); Mean Corpuscular HGB Conc 32.6 GM/DL (32-36); Mean Platelet Volume 10.7 FL (9.6-12.0); Monocytes % 8.1 % (1.7-12.7); Neutrophils % 75.5 % (38.7-73.9); Platelet Count 155 T/CUMM (130-400); Red Blood Count 3.72 MC/CUMM (3.8-5.5); Red Cell Distribution Width 15.9 % (9.3-17.3); White Blood Count 11.1 T/CUMM (4-12)
[2021-10-07 16:16] LABS: Albumin 2.6 G/DL (3.4-5.0); Bilirubin,Total 1.8 MG/DL (0.20-1.00); Calcium 8.6 MG/DL (8.5-10.1); Osmolality,Calculated 287.4 MOS/KG (273-304); Total Protein 6.1 G/DL (6.4-8.2)
[2021-10-07] MEDS: INSULIN LISPRO 100 UNIT/ML SUBCUT SCH ×2 (17:19→21:51)
[2021-10-07] MEDS ORDERED: ATORVASTATIN 40 MG TABLET PO SCH (21:00)
[2021-10-07] MEDS ORDERED: carvediloL 12.5 MG TABLET PO SCH (21:00)
[2021-10-07] MEDS ORDERED: SACUBITRIL/VALSARTAN 49-51 MG TABLET PO SCH (21:00)
[2021-10-07] MEDS: DOCUSATE SODIUM 100 MG CAPSULE PO SCH (21:50)
[2021-10-07] MEDS: rOPINIRole 1 MG TABLET PO SCH (21:50)
[2021-10-07] MEDS: GABAPENTIN 100 MG CAPSULE PO SCH (21:50)
[2021-10-07] MEDS: INSULIN GLARGINE 100 UNIT/ML SUBCUT SCH (21:51)
[2021-10-07] MEDS: ENOXAPARIN 30 MG/0.3 ML SYRINGE SUBCUT SCH (21:52)
[2021-10-08] MEDS: ACETAMINOPHEN 325 MG TABLET PO PRN (01:04)
[2021-10-08 06:13] LABS: Risk Ratio 7.6; VLDL Cholesterol 26.4 MG/DL
[2021-10-08 06:42] LABS: Amorphous Crystals,Urine Few /HPF (Few); Bilirubin,Urine Negative (Negative); Blood, Urine Negative (Negative); Glucose,Urine (UA) Negative (Negative); Hyaline Casts,Urine 7 /LPF (0-3); Ketones,Urine Negative (Negative); Mucus,Urine Occasional /LPF (Occasional); Nitrite,Urine Negative (Negative); Protein,Urine 30 MG/DL; RBC,Urine 1 /HPF (0-4); Squamous Epithelial Cell,Urine Occasional /HPF (0-10); Urine Appearance Slightly Hazy (Clear); Urine Color Amber (Yellow); Urine Specific Gravity 1.014 (1.001-1.035)
[2021-10-08] MEDS: INSULIN LISPRO 100 UNIT/ML SUBCUT SCH ×4 (08:37→21:28)
[2021-10-08] MEDS ORDERED: DAPAGLIFLOZIN 5 MG TABLET PO SCH (09:00)
[2021-10-08] MEDS ORDERED: FUROSEMIDE 40 MG TABLET PO SCH (09:00)
[2021-10-08] MEDS ORDERED: NON-FORMULARY MEDICATION (Insulin Glargine [Lantus Solostar U-100 Insulin] 100 unit/mL (3 SUBCUT SCH (09:00)
[2021-10-08] MEDS: DOCUSATE SODIUM 100 MG CAPSULE PO SCH ×2 (10:30→21:29)
[2021-10-08] MEDS: TIMOLOL 0.5% OPH SOLN 5 ML BOTTLE RIGHT EYE SCH (10:30)
[2021-10-08] MEDS: FEBUXOSTAT 80 MG TABLET PO SCH (10:30)
[2021-10-08] MEDS: CLOPIDOGREL 75 MG TABLET PO SCH (10:31)
[2021-10-08] MEDS: POTASSIUM CHLORIDE 20 MEQ TABLET PO SCH (10:31)
[2021-10-08] MEDS: ASPIRIN EC 81 MG TABLET PO SCH (10:31)
[2021-10-08] MEDS: PANTOPRAZOLE 40 MG TABLET PO SCH (10:31)
[2021-10-08] MEDS: TAMSULOSIN 0.4 MG CAPSULE PO SCH (10:31)
[2021-10-08] MEDS: GABAPENTIN 100 MG CAPSULE PO SCH ×2 (10:31→21:29)
[2021-10-08] MEDS: INSULIN GLARGINE 100 UNIT/ML SUBCUT SCH ×2 (10:32→21:28)
[2021-10-08] MEDS: carvediloL 6.25 MG TABLET PO SCH ×2 (10:39→17:29)
[2021-10-08] MEDS: ROSUVASTATIN 10 MG TABLET PO SCH (10:39)
[2021-10-08] MEDS: FUROSEMIDE 40 MG/4 ML VIAL IV SCH ×2 (10:57→17:16)
[2021-10-08] MEDS: SKIN HEALING OINT (AQUAPHOR) 50 GM TUBE TOP SCH (17:16)
[2021-10-08] MEDS: DESITIN 4OZ/NYSTATIN 15 GRAM MIXTURE PASTE TOP SCH ×2 (17:16→21:29)
[2021-10-08] MEDS: cefTRIAXone 1,000 MG in SODIUM CHLORIDE 0.9% 100 ML IV SCH (17:16)
[2021-10-08] MEDS ORDERED: SACUBITRIL/VALSARTAN 49-51 MG TABLET PO SCH (21:00)
[2021-10-08] MEDS: ESCITALOPRAM 10 MG TABLET PO SCH (21:29)
[2021-10-08] MEDS: ENOXAPARIN 30 MG/0.3 ML SYRINGE SUBCUT SCH (21:29)
[2021-10-08] MEDS: rOPINIRole 1 MG TABLET PO SCH (21:29)
[2021-10-08] MEDS: TRAVOPROST 0.004% OPH SOLN 2.5 ML BOTTLE RIGHT EYE SCH ×2 (21:30→21:36)
[2021-10-09 08:52] LABS: Calcium 8.6 MG/DL (8.5-10.1); Osmolality,Calculated 296.4 MOS/KG (273-304); Potassium 3.3 MMOL/L (3.5-5.1)
[2021-10-09] MEDS ORDERED: ISOSORBIDE MONONITRATE 30 MG TABLET PO SCH (09:00)
[2021-10-09] MEDS: INSULIN LISPRO 100 UNIT/ML SUBCUT SCH ×4 (09:18→21:21)
[2021-10-09] MEDS: FEBUXOSTAT 80 MG TABLET PO SCH (09:28)
[2021-10-09] MEDS: FUROSEMIDE 40 MG/4 ML VIAL IV SCH ×2 (09:28→16:56)
[2021-10-09] MEDS: INSULIN GLARGINE 100 UNIT/ML SUBCUT SCH ×2 (09:28→21:21)
[2021-10-09] MEDS: GABAPENTIN 100 MG CAPSULE PO SCH ×2 (09:29→21:21)
[2021-10-09] MEDS: ROSUVASTATIN 10 MG TABLET PO SCH (09:29)
[2021-10-09] MEDS: DOCUSATE SODIUM 100 MG CAPSULE PO SCH ×2 (09:29→21:20)
[2021-10-09] MEDS: PANTOPRAZOLE 40 MG TABLET PO SCH (09:29)
[2021-10-09] MEDS: POTASSIUM CHLORIDE 20 MEQ TABLET PO SCH (09:29)
[2021-10-09] MEDS: TAMSULOSIN 0.4 MG CAPSULE PO SCH (09:29)
[2021-10-09] MEDS: ASPIRIN EC 81 MG TABLET PO SCH (09:29)
[2021-10-09] MEDS: CLOPIDOGREL 75 MG TABLET PO SCH (09:29)
[2021-10-09] MEDS: carvediloL 6.25 MG TABLET PO SCH ×2 (09:29→16:57)
[2021-10-09] MEDS: TIMOLOL 0.5% OPH SOLN 5 ML BOTTLE RIGHT EYE SCH (09:30)
[2021-10-09] MEDS: SKIN HEALING OINT (AQUAPHOR) 50 GM TUBE TOP SCH (10:27)
[2021-10-09] MEDS: DESITIN 4OZ/NYSTATIN 15 GRAM MIXTURE PASTE TOP SCH ×2 (10:27→21:21)
[2021-10-09] MEDS ORDERED: POTASSIUM CHLORIDE 20 MEQ TABLET PO ONE ×2 (13:00→17:00)
[2021-10-09] MEDS: cefTRIAXone 1,000 MG in SODIUM CHLORIDE 0.9% 100 ML IV SCH (16:56)
[2021-10-09] MEDS: ENOXAPARIN 30 MG/0.3 ML SYRINGE SUBCUT SCH (21:19)
[2021-10-09] MEDS: rOPINIRole 1 MG TABLET PO SCH (21:20)
[2021-10-09] MEDS: TRAVOPROST 0.004% OPH SOLN 2.5 ML BOTTLE RIGHT EYE SCH (21:21)
[2021-10-09] MEDS: ESCITALOPRAM 10 MG TABLET PO SCH (21:21)
[2021-10-10 06:24] LABS: Calcium 9.1 MG/DL (8.5-10.1); Osmolality,Calculated 289.4 MOS/KG (273-304); Potassium 3.7 MMOL/L (3.5-5.1)
[2021-10-10] MEDS: ROSUVASTATIN 10 MG TABLET PO SCH (10:26)
[2021-10-10] MEDS: INSULIN LISPRO 100 UNIT/ML SUBCUT SCH ×4 (10:26→21:29)
[2021-10-10] MEDS: DOCUSATE SODIUM 100 MG CAPSULE PO SCH ×2 (10:27→21:29)
[2021-10-10] MEDS: ASPIRIN EC 81 MG TABLET PO SCH (10:27)
[2021-10-10] MEDS: GABAPENTIN 100 MG CAPSULE PO SCH ×2 (10:27→21:29)
[2021-10-10] MEDS: FEBUXOSTAT 80 MG TABLET PO SCH (10:27)
[2021-10-10] MEDS: PANTOPRAZOLE 40 MG TABLET PO SCH (10:27)
[2021-10-10] MEDS: TAMSULOSIN 0.4 MG CAPSULE PO SCH (10:27)
[2021-10-10] MEDS: carvediloL 6.25 MG TABLET PO SCH ×2 (10:27→17:58)
[2021-10-10] MEDS: CLOPIDOGREL 75 MG TABLET PO SCH (10:27)
[2021-10-10] MEDS: POTASSIUM CHLORIDE 20 MEQ TABLET PO SCH (10:28)
[2021-10-10] MEDS: SKIN HEALING OINT (AQUAPHOR) 50 GM TUBE TOP SCH (10:28)
[2021-10-10] MEDS: INSULIN GLARGINE 100 UNIT/ML SUBCUT SCH ×2 (10:28→21:29)
[2021-10-10] MEDS: FUROSEMIDE 40 MG/4 ML VIAL IV SCH ×2 (10:28→17:59)
[2021-10-10] MEDS: TIMOLOL 0.5% OPH SOLN 5 ML BOTTLE RIGHT EYE SCH (10:29)
[2021-10-10] MEDS: DESITIN 4OZ/NYSTATIN 15 GRAM MIXTURE PASTE TOP SCH ×2 (10:29→22:40)
[2021-10-10] MEDS: ACETAMINOPHEN 325 MG TABLET PO PRN (17:59)
[2021-10-10] MEDS: cefTRIAXone 1,000 MG in SODIUM CHLORIDE 0.9% 100 ML IV SCH (17:59)
[2021-10-10] MEDS: ENOXAPARIN 30 MG/0.3 ML SYRINGE SUBCUT SCH (21:28)
[2021-10-10] MEDS: rOPINIRole 1 MG TABLET PO SCH (21:29)
[2021-10-10] MEDS: ESCITALOPRAM 10 MG TABLET PO SCH (21:29)
[2021-10-10] MEDS: TRAVOPROST 0.004% OPH SOLN 2.5 ML BOTTLE RIGHT EYE SCH (22:40)
[2021-10-11] MEDS: INSULIN LISPRO 100 UNIT/ML SUBCUT SCH ×4 (09:30→20:39)
[2021-10-11] MEDS: CEFEPIME 1,000 MG in SODIUM CHLORIDE 0.9% 100 ML IV SCH ×2 (09:59→21:21)
[2021-10-11] MEDS: ASPIRIN EC 81 MG TABLET PO SCH (10:01)
[2021-10-11] MEDS: FUROSEMIDE 40 MG/4 ML VIAL IV SCH ×2 (10:01→17:34)
[2021-10-11] MEDS: ROSUVASTATIN 10 MG TABLET PO SCH (10:01)
[2021-10-11] MEDS: TAMSULOSIN 0.4 MG CAPSULE PO SCH (10:01)
[2021-10-11] MEDS: POTASSIUM CHLORIDE 20 MEQ TABLET PO SCH (10:01)
[2021-10-11] MEDS: DOCUSATE SODIUM 100 MG CAPSULE PO SCH ×2 (10:01→21:22)
[2021-10-11] MEDS: SKIN HEALING OINT (AQUAPHOR) 50 GM TUBE TOP SCH (10:01)
[2021-10-11] MEDS: carvediloL 6.25 MG TABLET PO SCH ×2 (10:01→17:34)
[2021-10-11] MEDS: PANTOPRAZOLE 40 MG TABLET PO SCH (10:02)
[2021-10-11] MEDS: GABAPENTIN 100 MG CAPSULE PO SCH ×2 (10:02→21:22)
[2021-10-11] MEDS: INSULIN GLARGINE 100 UNIT/ML SUBCUT SCH ×2 (10:02→21:22)
[2021-10-11] MEDS: CLOPIDOGREL 75 MG TABLET PO SCH (10:02)
[2021-10-11] MEDS: FEBUXOSTAT 80 MG TABLET PO SCH (10:02)
[2021-10-11] MEDS: TIMOLOL 0.5% OPH SOLN 5 ML BOTTLE RIGHT EYE SCH (10:02)
[2021-10-11] MEDS: DESITIN 4OZ/NYSTATIN 15 GRAM MIXTURE PASTE TOP SCH ×2 (10:02→21:23)
[2021-10-11] MEDS: rOPINIRole 1 MG TABLET PO SCH (21:22)
[2021-10-11] MEDS: ESCITALOPRAM 10 MG TABLET PO SCH (21:22)
[2021-10-11] MEDS: ENOXAPARIN 30 MG/0.3 ML SYRINGE SUBCUT SCH (21:23)
[2021-10-11] MEDS: TRAVOPROST 0.004% OPH SOLN 2.5 ML BOTTLE RIGHT EYE SCH (21:23)
[2021-10-12] MEDS: ASPIRIN EC 81 MG TABLET PO SCH (09:44)
[2021-10-12] MEDS: TIMOLOL 0.5% OPH SOLN 5 ML BOTTLE RIGHT EYE SCH (09:44)
[2021-10-12] MEDS: PANTOPRAZOLE 40 MG TABLET PO SCH (09:45)
[2021-10-12] MEDS: TAMSULOSIN 0.4 MG CAPSULE PO SCH (09:45)
[2021-10-12] MEDS: POTASSIUM CHLORIDE 20 MEQ TABLET PO SCH (09:45)
[2021-10-12] MEDS: SKIN HEALING OINT (AQUAPHOR) 50 GM TUBE TOP SCH (09:45)
[2021-10-12] MEDS: carvediloL 6.25 MG TABLET PO SCH ×2 (09:45→18:38)
[2021-10-12] MEDS: CLOPIDOGREL 75 MG TABLET PO SCH (09:45)
[2021-10-12] MEDS: DESITIN 4OZ/NYSTATIN 15 GRAM MIXTURE PASTE TOP SCH ×2 (09:45→22:04)
[2021-10-12] MEDS: FEBUXOSTAT 80 MG TABLET PO SCH (09:45)
[2021-10-12] MEDS: GABAPENTIN 100 MG CAPSULE PO SCH ×2 (09:46→22:03)
[2021-10-12] MEDS: ROSUVASTATIN 10 MG TABLET PO SCH (09:46)
[2021-10-12] MEDS: DOCUSATE SODIUM 100 MG CAPSULE PO SCH ×2 (09:46→22:03)
[2021-10-12] MEDS: FUROSEMIDE 40 MG/4 ML VIAL IV SCH ×2 (09:51→15:25)
[2021-10-12] MEDS: INSULIN GLARGINE 100 UNIT/ML SUBCUT SCH ×2 (09:52→22:04)
[2021-10-12] MEDS: INSULIN LISPRO 100 UNIT/ML SUBCUT SCH ×5 (11:32→22:03)
[2021-10-12] MEDS: CEFEPIME 1,000 MG in SODIUM CHLORIDE 0.9% 100 ML IV SCH ×2 (12:45→22:01)
[2021-10-12] MEDS: ENOXAPARIN 30 MG/0.3 ML SYRINGE SUBCUT SCH (22:03)
[2021-10-12] MEDS: ESCITALOPRAM 10 MG TABLET PO SCH (22:03)
[2021-10-12] MEDS: rOPINIRole 1 MG TABLET PO SCH (22:03)
[2021-10-12] MEDS: TRAVOPROST 0.004% OPH SOLN 2.5 ML BOTTLE RIGHT EYE SCH (22:04)
[2021-10-13] MEDS: carvediloL 6.25 MG TABLET PO SCH ×2 (09:43→17:49)
[2021-10-13] MEDS: POTASSIUM CHLORIDE 20 MEQ TABLET PO SCH (09:43)
[2021-10-13] MEDS: ASPIRIN EC 81 MG TABLET PO SCH (09:43)
[2021-10-13] MEDS: TAMSULOSIN 0.4 MG CAPSULE PO SCH (09:43)
[2021-10-13] MEDS: GABAPENTIN 100 MG CAPSULE PO SCH ×2 (09:43→20:56)
[2021-10-13] MEDS: FEBUXOSTAT 80 MG TABLET PO SCH (09:43)
[2021-10-13] MEDS: CLOPIDOGREL 75 MG TABLET PO SCH (09:43)
[2021-10-13] MEDS: DOCUSATE SODIUM 100 MG CAPSULE PO SCH ×2 (09:43→20:56)
[2021-10-13] MEDS: ROSUVASTATIN 10 MG TABLET PO SCH (09:43)
[2021-10-13] MEDS: INSULIN LISPRO 100 UNIT/ML SUBCUT SCH ×4 (09:44→20:55)
[2021-10-13] MEDS: DESITIN 4OZ/NYSTATIN 15 GRAM MIXTURE PASTE TOP SCH ×2 (09:44→20:53)
[2021-10-13] MEDS: SKIN HEALING OINT (AQUAPHOR) 50 GM TUBE TOP SCH (09:44)
[2021-10-13] MEDS: INSULIN GLARGINE 100 UNIT/ML SUBCUT SCH ×2 (09:44→20:55)
[2021-10-13] MEDS: CEFEPIME 1,000 MG in SODIUM CHLORIDE 0.9% 100 ML IV SCH ×2 (09:45→20:54)
[2021-10-13] MEDS: TIMOLOL 0.5% OPH SOLN 5 ML BOTTLE RIGHT EYE SCH (09:46)
[2021-10-13] MEDS: PANTOPRAZOLE 40 MG TABLET PO SCH (09:46)
[2021-10-13] MEDS: FUROSEMIDE 40 MG/4 ML VIAL IV SCH (09:51)
[2021-10-13] MEDS: SACUBITRIL/VALSARTAN 49-51 MG TABLET PO SCH ×2 (13:39→20:56)
[2021-10-13] MEDS: FUROSEMIDE 40 MG TABLET PO SCH (18:07)
[2021-10-13] MEDS: TRAVOPROST 0.004% OPH SOLN 2.5 ML BOTTLE RIGHT EYE SCH (20:54)
[2021-10-13] MEDS: ENOXAPARIN 30 MG/0.3 ML SYRINGE SUBCUT SCH (20:55)
[2021-10-13] MEDS: rOPINIRole 1 MG TABLET PO SCH (20:56)
[2021-10-13] MEDS: ESCITALOPRAM 10 MG TABLET PO SCH (20:56)
[2021-10-14 05:53] LABS: Calcium 8.9 MG/DL (8.5-10.1); Osmolality,Calculated 291.3 MOS/KG (273-304); Potassium 3.7 MMOL/L (3.5-5.1)
[2021-10-14] MEDS: ASPIRIN EC 81 MG TABLET PO SCH (10:30)
[2021-10-14] MEDS: DOCUSATE SODIUM 100 MG CAPSULE PO SCH ×2 (10:30→21:22)
[2021-10-14] MEDS: CLOPIDOGREL 75 MG TABLET PO SCH (10:30)
[2021-10-14] MEDS: carvediloL 6.25 MG TABLET PO SCH ×2 (10:30→17:15)
[2021-10-14] MEDS: TAMSULOSIN 0.4 MG CAPSULE PO SCH (10:30)
[2021-10-14] MEDS: FUROSEMIDE 40 MG TABLET PO SCH ×2 (10:30→17:15)
[2021-10-14] MEDS: PANTOPRAZOLE 40 MG TABLET PO SCH (10:30)
[2021-10-14] MEDS: FEBUXOSTAT 80 MG TABLET PO SCH (10:31)
[2021-10-14] MEDS: SACUBITRIL/VALSARTAN 49-51 MG TABLET PO SCH ×2 (10:31→21:21)
[2021-10-14] MEDS: ROSUVASTATIN 10 MG TABLET PO SCH (10:31)
[2021-10-14] MEDS: GABAPENTIN 100 MG CAPSULE PO SCH ×2 (10:31→21:22)
[2021-10-14] MEDS: POTASSIUM CHLORIDE 20 MEQ TABLET PO SCH (10:31)
[2021-10-14] MEDS: INSULIN GLARGINE 100 UNIT/ML SUBCUT SCH ×2 (10:32→21:22)
[2021-10-14] MEDS: SKIN HEALING OINT (AQUAPHOR) 50 GM TUBE TOP SCH (10:32)
[2021-10-14] MEDS: CEFEPIME 1,000 MG in SODIUM CHLORIDE 0.9% 100 ML IV SCH ×2 (10:34→21:21)
[2021-10-14] MEDS: DESITIN 4OZ/NYSTATIN 15 GRAM MIXTURE PASTE TOP SCH ×2 (10:37→21:23)
[2021-10-14] MEDS: INSULIN LISPRO 100 UNIT/ML SUBCUT SCH ×4 (10:37→21:23)
[2021-10-14] MEDS: TIMOLOL 0.5% OPH SOLN 5 ML BOTTLE RIGHT EYE SCH (13:38)
[2021-10-14] MEDS: ENOXAPARIN 30 MG/0.3 ML SYRINGE SUBCUT SCH (21:22)
[2021-10-14] MEDS: rOPINIRole 1 MG TABLET PO SCH (21:22)
[2021-10-14] MEDS: ESCITALOPRAM 10 MG TABLET PO SCH (21:22)
[2021-10-14] MEDS: TRAVOPROST 0.004% OPH SOLN 2.5 ML BOTTLE RIGHT EYE SCH (21:35)
[2021-10-15 05:44] LABS: Calcium 9.3 MG/DL (8.5-10.1); Osmolality,Calculated 290.8 MOS/KG (273-304); Potassium 3.6 MMOL/L (3.5-5.1)
[2021-10-15] MEDS ORDERED: TUBERCULIN SKIN TEST 0.1 ML SYRINGE INTRADERM ONE (11:00)
[2021-10-15] MEDS: FEBUXOSTAT 80 MG TABLET PO SCH (11:17)
[2021-10-15] MEDS: carvediloL 6.25 MG TABLET PO SCH ×2 (11:17→17:22)
[2021-10-15] MEDS: FUROSEMIDE 40 MG TABLET PO SCH ×2 (11:18→17:22)
[2021-10-15] MEDS: TAMSULOSIN 0.4 MG CAPSULE PO SCH (11:18)
[2021-10-15] MEDS: DOCUSATE SODIUM 100 MG CAPSULE PO SCH ×2 (11:18→22:09)
[2021-10-15] MEDS: ASPIRIN EC 81 MG TABLET PO SCH (11:18)
[2021-10-15] MEDS: PANTOPRAZOLE 40 MG TABLET PO SCH (11:18)
[2021-10-15] MEDS: ROSUVASTATIN 10 MG TABLET PO SCH (11:18)
[2021-10-15] MEDS: SACUBITRIL/VALSARTAN 49-51 MG TABLET PO SCH ×2 (11:18→22:10)
[2021-10-15] MEDS: CLOPIDOGREL 75 MG TABLET PO SCH (11:18)
[2021-10-15] MEDS: GABAPENTIN 100 MG CAPSULE PO SCH ×2 (11:19→22:09)
[2021-10-15] MEDS: POTASSIUM CHLORIDE 20 MEQ TABLET PO SCH (11:19)
[2021-10-15] MEDS: INSULIN LISPRO 100 UNIT/ML SUBCUT SCH ×4 (11:20→22:08)
[2021-10-15] MEDS: DESITIN 4OZ/NYSTATIN 15 GRAM MIXTURE PASTE TOP SCH ×2 (11:21→22:10)
[2021-10-15] MEDS: SKIN HEALING OINT (AQUAPHOR) 50 GM TUBE TOP SCH (11:21)
[2021-10-15] MEDS: INSULIN GLARGINE 100 UNIT/ML SUBCUT SCH ×2 (11:21→22:10)
[2021-10-15] MEDS: TIMOLOL 0.5% OPH SOLN 5 ML BOTTLE RIGHT EYE SCH (11:22)
[2021-10-15] MEDS: CEFEPIME 1,000 MG in SODIUM CHLORIDE 0.9% 100 ML IV SCH ×2 (11:30→22:07)
[2021-10-15] MEDS: ENOXAPARIN 30 MG/0.3 ML SYRINGE SUBCUT SCH (22:07)
[2021-10-15] MEDS: ACETAMINOPHEN 325 MG TABLET PO PRN (22:08)
[2021-10-15] MEDS: ESCITALOPRAM 10 MG TABLET PO SCH (22:08)
[2021-10-15] MEDS: rOPINIRole 1 MG TABLET PO SCH (22:09)
[2021-10-15] MEDS: TRAVOPROST 0.004% OPH SOLN 2.5 ML BOTTLE RIGHT EYE SCH (22:10)
[2021-10-16] MEDS: FEBUXOSTAT 80 MG TABLET PO SCH (09:54)
[2021-10-16] MEDS: ASPIRIN EC 81 MG TABLET PO SCH (09:54)
[2021-10-16] MEDS: carvediloL 6.25 MG TABLET PO SCH (09:54)
[2021-10-16] MEDS: INSULIN GLARGINE 100 UNIT/ML SUBCUT SCH (09:54)
[2021-10-16] MEDS: DOCUSATE SODIUM 100 MG CAPSULE PO SCH (09:54)
[2021-10-16] MEDS: GABAPENTIN 100 MG CAPSULE PO SCH (09:54)
[2021-10-16] MEDS: CLOPIDOGREL 75 MG TABLET PO SCH (09:54)
[2021-10-16] MEDS: ROSUVASTATIN 10 MG TABLET PO SCH (09:54)
[2021-10-16] MEDS: FUROSEMIDE 40 MG TABLET PO SCH (09:54)
[2021-10-16] MEDS: POTASSIUM CHLORIDE 20 MEQ TABLET PO SCH (09:54)
[2021-10-16] MEDS: TAMSULOSIN 0.4 MG CAPSULE PO SCH (09:54)
[2021-10-16] MEDS: SACUBITRIL/VALSARTAN 49-51 MG TABLET PO SCH (09:54)
[2021-10-16] MEDS: PANTOPRAZOLE 40 MG TABLET PO SCH (09:54)
[2021-10-16] MEDS: CEFEPIME 1,000 MG in SODIUM CHLORIDE 0.9% 100 ML IV SCH (09:55)
[2021-10-16] MEDS: TIMOLOL 0.5% OPH SOLN 5 ML BOTTLE RIGHT EYE SCH (09:55)
[2021-10-16] MEDS: SKIN HEALING OINT (AQUAPHOR) 50 GM TUBE TOP SCH (09:55)
[2021-10-16] MEDS: DESITIN 4OZ/NYSTATIN 15 GRAM MIXTURE PASTE TOP SCH (10:51)
[2021-10-16] MEDS: INSULIN LISPRO 100 UNIT/ML SUBCUT SCH ×2 (10:51→12:33)
[2021-10-16 16:23] VITALS: BP 117/78
== END 2021-10-16 15:55 | DRG 673 ==
LOC: INTOOBSV 14:53 → N.5E 14:53 → OBSVTOIN 10-12 10:00
PROVIDERS: ADMIT Family Medicine; ATTEND Family Medicine

== ENCOUNTER 2022-08-09 08:30 | Inpatient (IN) ==
[2022-08-09] MEDS ORDERED: SODIUM CHLORIDE 0.9% 1,000 ML IV STA (09:14)
[2022-08-09 09:27] LABS: Basophils % 0.4 % (0.0-0.8); Eosinophils % 0.4 % (0.00-10.9); Hemoglobin 14.5 GM/DL (14.0-18.0); Immature Granulocytes % 0.7 %; Immature Granulocytes Absolute 0.02 #; Lymphocytes # 0.6 10*3/uL (1.4-4.0); Mean Corpuscular HGB Conc 31.5 GM/DL (32-36); Mean Corpuscular Volume 93.9 FL (87-102); Mean Platelet Volume 12.3 FL (9.6-12.0); Monocytes # 0.3 10*3/uL (0.11-0.8); Monocytes % 12.3 % (1.7-12.7); Neutrophils % 64.2 % (38.7-73.9); Red Cell Distribution Width 15.9 % (9.3-17.3); White Blood Count 2.7 T/CUMM (4-12)
[2022-08-09 09:28] LABS: Platelet Count 66 T/CUMM (130-400)
[2022-08-09 09:32] LABS: INR 1.1; PT Patient Result 12.1 SECS (10.1-12.1)
[2022-08-09 09:50] LABS: Albumin 3.3 G/DL (3.4-5.0); Bilirubin,Total 0.8 MG/DL (0.20-1.00); Calcium 8.2 MG/DL (8.5-10.1); Osmolality,Calculated 298.2 MOS/KG (273-304); Potassium 4.3 MMOL/L (3.5-5.1); Total Protein 5.9 G/DL (6.4-8.2)
[2022-08-09 11:28] LABS: Hyaline Casts,Urine 80 /LPF (0-3); Mucus,Urine Occasional /LPF (Occasional); RBC,Urine 1 /HPF (0-4)
[2022-08-09 11:29] LABS: Bilirubin,Urine Small mg/dL (Negative); Blood, Urine Negative (Negative); Glucose,Urine (UA) Negative (Negative); Ketones,Urine Trace mg/dL (Negative); Nitrite,Urine Negative (Negative); Protein,Urine 30 mg/dL (Negative); Urine Appearance Clear (Clear); Urine Color Amber (Yellow); Urine Specific Gravity > 1.030 (1.001-1.035); Urine Urobilinogen 0.2 eU/dL (<2.0)
[2022-08-09] MEDS ORDERED: ACETAMINOPHEN 325 MG TABLET PO PRN ×2 (11:54→13:19)
[2022-08-09] MEDS ORDERED: GLUCAGON 1 MG VIAL IM PRN (11:54)
[2022-08-09] MEDS ORDERED: ONDANSETRON 4 MG/2 ML VIAL IV PRN (11:54)
[2022-08-09] MEDS ORDERED: DEXTROSE 10% 250 ML BAG IV PRN (11:57)
[2022-08-09] MEDS ORDERED: SODIUM CHLORIDE 0.9% 1,000 ML IV SCH (12:00)
[2022-08-09] MEDS ORDERED: TESTOSTERONE CYPIONATE 200 MG/ML VIAL IM SCH (13:30)
[2022-08-09] MEDS: INSULIN LISPRO 100 UNIT/ML SUBCUT SCH ×2 (17:40→21:57)
[2022-08-09] MEDS: carvediloL 6.25 MG TABLET PO SCH (21:40)
[2022-08-09] MEDS: SACUBITRIL/VALSARTAN 49-51 MG TABLET PO SCH (21:40)
[2022-08-09] MEDS: INSULIN GLARGINE 100 UNIT/ML SUBCUT SCH (21:41)
[2022-08-09] MEDS: ESCITALOPRAM 10 MG TABLET PO SCH (21:42)
[2022-08-09] MEDS: PRAMIPEXOLE 0.25 MG TABLET PO SCH (21:42)
[2022-08-09] MEDS: GABAPENTIN 100 MG CAPSULE PO SCH (21:43)
[2022-08-09] MEDS: TRAVOPROST 0.004% OPH SOLN 2.5 ML BOTTLE RIGHT EYE SCH (21:45)
[2022-08-09] MEDS: tiZANidine 4 MG TABLET PO SCH (21:45)
[2022-08-09] MEDS: DOCUSATE SODIUM 100 MG CAPSULE PO SCH (21:58)
[2022-08-10 04:49] LABS: Basophils % 0.4 % (0.0-0.8); Eosinophils % 1.1 % (0.00-10.9); Hematocrit 44.4 VOL% (42.0-52.0); Hemoglobin 13.7 GM/DL (14.0-18.0); Immature Granulocytes % 0.8 %; Immature Granulocytes Absolute 0.02 #; Lymphocytes % 36.6 % (21.2-54.2); Mean Corpuscular HGB Conc 30.9 GM/DL (32-36); Mean Corpuscular Volume 95.9 FL (87-102); Mean Platelet Volume 11.7 FL (9.6-12.0); Monocytes # 0.3 10*3/uL (0.11-0.8); Monocytes % 12.5 % (1.7-12.7); Neutrophils % 48.6 % (38.7-73.9); Platelet Count 53 T/CUMM (130-400); Red Blood Count 4.63 MC/CUMM (3.8-5.5); Red Cell Distribution Width 15.8 % (9.3-17.3); White Blood Count 2.7 T/CUMM (4-12)
[2022-08-10 05:08] LABS: Platelet Estimate Decreased
[2022-08-10 05:15] LABS: Bilirubin,Total 0.7 MG/DL (0.20-1.00); Calcium 8.1 MG/DL (8.5-10.1); Potassium 3.8 MMOL/L (3.5-5.1); Total Protein 5.8 G/DL (6.4-8.2)
[2022-08-10] MEDS ORDERED: SODIUM CHLORIDE 0.9% 500 ML IV STA (07:35)
[2022-08-10] MEDS: INSULIN LISPRO 100 UNIT/ML SUBCUT SCH ×4 (07:43→22:37)
[2022-08-10] MEDS: carvediloL 6.25 MG TABLET PO SCH ×2 (08:28→22:41)
[2022-08-10] MEDS: POTASSIUM CHLORIDE 20 MEQ TABLET PO SCH (08:28)
[2022-08-10] MEDS: GABAPENTIN 100 MG CAPSULE PO SCH ×2 (08:29→22:43)
[2022-08-10] MEDS: FUROSEMIDE 80 MG TABLET PO SCH (08:29)
[2022-08-10] MEDS: FEBUXOSTAT 80 MG TABLET PO SCH (08:29)
[2022-08-10] MEDS: TAMSULOSIN 0.4 MG CAPSULE PO SCH (08:29)
[2022-08-10] MEDS: CLOPIDOGREL 75 MG TABLET PO SCH (08:29)
[2022-08-10] MEDS: SACUBITRIL/VALSARTAN 49-51 MG TABLET PO SCH ×2 (08:29→22:42)
[2022-08-10] MEDS: ASPIRIN EC 81 MG TABLET PO SCH (08:30)
[2022-08-10] MEDS: PANTOPRAZOLE 40 MG TABLET PO SCH (08:30)
[2022-08-10] MEDS: DOCUSATE SODIUM 100 MG CAPSULE PO SCH ×2 (08:30→22:41)
[2022-08-10] MEDS: ROSUVASTATIN 10 MG TABLET PO SCH (08:30)
[2022-08-10] MEDS: guaiFENesin/CODEINE 5 ML LIQUID PO PRN ×3 (08:30→22:48)
[2022-08-10] MEDS: SODIUM CHLORIDE 0.9% 1,000 ML IV SCH ×2 (08:44→22:44)
[2022-08-10] MEDS ORDERED: CEFDINIR 300 MG CAPSULE PO SCH (09:00)
[2022-08-10] MEDS: INSULIN GLARGINE 100 UNIT/ML SUBCUT SCH ×2 (09:06→22:42)
[2022-08-10] MEDS: TIMOLOL 0.5% OPH SOLN 5 ML BOTTLE RIGHT EYE SCH (09:11)
[2022-08-10] MEDS ORDERED: VANCOMYCIN INJ 2,000 MG in SODIUM CHLORIDE 0.9% 500 ML IV PRN (11:32)
[2022-08-10] MEDS ORDERED: cefTRIAXone 1,000 MG in SODIUM CHLORIDE 0.9% 100 ML IV SCH (12:00)
[2022-08-10] MEDS: ALBUTEROL 2.5 MG/3 ML NEB RESP TX SCH ×2 (12:34→18:28)
[2022-08-10] MEDS ORDERED: VANCOMYCIN INJ 2,000 MG in SODIUM CHLORIDE 0.9% 500 ML IV ONE (13:00)
[2022-08-10] MEDS: ESCITALOPRAM 10 MG TABLET PO SCH (22:42)
[2022-08-10] MEDS: tiZANidine 4 MG TABLET PO SCH (22:43)
[2022-08-10] MEDS: PRAMIPEXOLE 0.25 MG TABLET PO SCH (22:43)
[2022-08-10] MEDS: TRAVOPROST 0.004% OPH SOLN 2.5 ML BOTTLE RIGHT EYE SCH (22:44)
[2022-08-11 06:00] LABS: Calcium 7.7 MG/DL (8.5-10.1); Osmolality,Calculated 293.4 MOS/KG (273-304); Potassium 3.7 MMOL/L (3.5-5.1)
[2022-08-11] MEDS: ALBUTEROL 2.5 MG/3 ML NEB RESP TX SCH ×4 (06:50→19:18)
[2022-08-11] MEDS: INSULIN LISPRO 100 UNIT/ML SUBCUT SCH ×4 (07:19→21:33)
[2022-08-11] MEDS: carvediloL 6.25 MG TABLET PO SCH ×2 (09:03→21:24)
[2022-08-11] MEDS: INSULIN GLARGINE 100 UNIT/ML SUBCUT SCH ×2 (09:11→21:32)
[2022-08-11] MEDS: FEBUXOSTAT 80 MG TABLET PO SCH (09:11)
[2022-08-11] MEDS: DOCUSATE SODIUM 100 MG CAPSULE PO SCH ×2 (09:12→21:25)
[2022-08-11] MEDS: POTASSIUM CHLORIDE 20 MEQ TABLET PO SCH (09:12)
[2022-08-11] MEDS: FUROSEMIDE 80 MG TABLET PO SCH (09:12)
[2022-08-11] MEDS: ROSUVASTATIN 10 MG TABLET PO SCH (09:12)
[2022-08-11] MEDS: CLOPIDOGREL 75 MG TABLET PO SCH (09:12)
[2022-08-11] MEDS: SACUBITRIL/VALSARTAN 49-51 MG TABLET PO SCH ×2 (09:12→21:24)
[2022-08-11] MEDS: GABAPENTIN 100 MG CAPSULE PO SCH ×2 (09:12→21:25)
[2022-08-11] MEDS: TAMSULOSIN 0.4 MG CAPSULE PO SCH (09:12)
[2022-08-11] MEDS: PANTOPRAZOLE 40 MG TABLET PO SCH (09:12)
[2022-08-11] MEDS: ASPIRIN EC 81 MG TABLET PO SCH (09:12)
[2022-08-11] MEDS: TIMOLOL 0.5% OPH SOLN 5 ML BOTTLE RIGHT EYE SCH (09:53)
[2022-08-11] MEDS ORDERED: LEVOFLOXACIN INJ 500 MG/100 ML PREMIX IV SCH (12:00)
[2022-08-11] MEDS: SODIUM CHLORIDE 0.9% 1,000 ML IV SCH (13:34)
[2022-08-11] MEDS ORDERED: VANCOMYCIN INJ 2,000 MG in SODIUM CHLORIDE 0.9% 500 ML IV ONE (18:00)
[2022-08-11] MEDS: ESCITALOPRAM 10 MG TABLET PO SCH (21:24)
[2022-08-11] MEDS: PRAMIPEXOLE 0.25 MG TABLET PO SCH (21:24)
[2022-08-11] MEDS: tiZANidine 4 MG TABLET PO SCH (21:25)
[2022-08-11] MEDS: guaiFENesin/CODEINE 5 ML LIQUID PO PRN (21:31)
[2022-08-12] MEDS: TRAVOPROST 0.004% OPH SOLN 2.5 ML BOTTLE RIGHT EYE SCH ×2 (00:06→21:01)
[2022-08-12] MEDS: ALBUTEROL 2.5 MG/3 ML NEB RESP TX SCH ×4 (00:16→19:12)
[2022-08-12] MEDS: SODIUM CHLORIDE 0.9% 1,000 ML IV SCH ×3 (01:43→18:01)
[2022-08-12 05:14] LABS: Calcium 7.6 MG/DL (8.5-10.1); Osmolality,Calculated 295.3 MOS/KG (273-304); Potassium 3.9 MMOL/L (3.5-5.1)
[2022-08-12] MEDS: ASPIRIN EC 81 MG TABLET PO SCH (08:44)
[2022-08-12] MEDS: FEBUXOSTAT 80 MG TABLET PO SCH (08:44)
[2022-08-12] MEDS: FUROSEMIDE 80 MG TABLET PO SCH (08:44)
[2022-08-12] MEDS: PANTOPRAZOLE 40 MG TABLET PO SCH (08:44)
[2022-08-12] MEDS: SACUBITRIL/VALSARTAN 49-51 MG TABLET PO SCH ×2 (08:44→21:01)
[2022-08-12] MEDS: DOCUSATE SODIUM 100 MG CAPSULE PO SCH ×2 (08:45→21:01)
[2022-08-12] MEDS: TAMSULOSIN 0.4 MG CAPSULE PO SCH (08:45)
[2022-08-12] MEDS: ROSUVASTATIN 10 MG TABLET PO SCH (08:45)
[2022-08-12] MEDS: POTASSIUM CHLORIDE 20 MEQ TABLET PO SCH (08:45)
[2022-08-12] MEDS: carvediloL 6.25 MG TABLET PO SCH ×2 (08:45→21:01)
[2022-08-12] MEDS: CLOPIDOGREL 75 MG TABLET PO SCH (08:45)
[2022-08-12] MEDS: GABAPENTIN 100 MG CAPSULE PO SCH ×2 (08:45→21:01)
[2022-08-12] MEDS: INSULIN LISPRO 100 UNIT/ML SUBCUT SCH ×4 (08:48→20:16)
[2022-08-12] MEDS: TIMOLOL 0.5% OPH SOLN 5 ML BOTTLE RIGHT EYE SCH (08:49)
[2022-08-12] MEDS: guaiFENesin/CODEINE 5 ML LIQUID PO PRN ×2 (08:49→21:00)
[2022-08-12] MEDS ORDERED: LEVOFLOXACIN INJ 250 MG/50 ML PREMIX IV SCH (09:00)
[2022-08-12] MEDS: INSULIN GLARGINE 100 UNIT/ML SUBCUT SCH ×2 (09:52→20:16)
[2022-08-12] MEDS: ESCITALOPRAM 10 MG TABLET PO SCH (21:01)
[2022-08-12] MEDS: PRAMIPEXOLE 0.25 MG TABLET PO SCH (21:01)
[2022-08-12] MEDS: tiZANidine 4 MG TABLET PO SCH (21:01)
[2022-08-13] MEDS: ALBUTEROL 2.5 MG/3 ML NEB RESP TX SCH ×2 (01:06→07:23)
[2022-08-13 06:14] LABS: Calcium 7.7 MG/DL (8.5-10.1); Osmolality,Calculated 294.1 MOS/KG (273-304); Potassium 4.1 MMOL/L (3.5-5.1)
[2022-08-13] MEDS: INSULIN LISPRO 100 UNIT/ML SUBCUT SCH (08:00)
[2022-08-13 08:09] VITALS: BP 154/99
[2022-08-13] MEDS: SODIUM CHLORIDE 0.9% 1,000 ML IV SCH (09:00)
== END 2022-08-13 11:00 | disposition home health service (06) | DRG 872 ==
LOC: N.ED 08:30 → N.EDINP 08:30 → N.2W 13:40 → N.5E 08-11 15:11
PROVIDERS: ADMIT Family Medicine; ATTEND Family Medicine

== ENCOUNTER 2022-10-26 06:27 | Inpatient (IN) ==
[2022-10-26] MEDS ORDERED: ONDANSETRON 4 MG/2 ML VIAL IV STA (06:56)
[2022-10-26] MEDS ORDERED: HYDROmorphone 1 MG/1 ML SYRINGE IV STA (06:56)
[2022-10-26] MEDS ORDERED: HYDROmorphone 1 MG/1 ML SYRINGE ONE (06:58)
[2022-10-26] MEDS ORDERED: ONDANSETRON 4 MG/2 ML VIAL ONE (06:58)
[2022-10-26 08:06] LABS: Basophils % 0.1 % (0.0-0.8); Hematocrit 39.3 VOL% (42.0-52.0); Immature Granulocytes % 0.9 %; Immature Granulocytes Absolute 0.08 #; Lymphocytes # 0.6 10*3/uL (1.4-4.0); Mean Corpuscular HGB Conc 29.8 GM/DL (32-36); Mean Corpuscular Volume 89.3 FL (87-102); Mean Platelet Volume 11.8 FL (9.6-12.0); Monocytes # 0.6 10*3/uL (0.11-0.8); Monocytes % 6.5 % (1.7-12.7); Neutrophils % 86.5 % (38.7-73.9); Platelet Count 96 T/CUMM (130-400); Red Cell Distribution Width 17.7 % (9.3-17.3); White Blood Count 9.38 T/CUMM (4-12)
[2022-10-26] MEDS ORDERED: propofoL 200 MG/20 ML VIAL IV ONE (08:08)
[2022-10-26 08:17] LABS: Hemoglobin 11.7 GM/DL (14.0-18.0)
[2022-10-26 08:28] LABS: Platelet Estimate Decreased
[2022-10-26 08:30] LABS: Albumin 3.2 G/DL (3.4-5.0); Bilirubin,Total 1.3 MG/DL (0.20-1.00); Calcium 8.4 MG/DL (8.5-10.1); Osmolality,Calculated 299.7 MOS/KG (273-304); Potassium 5.1 MMOL/L (3.5-5.1); Total Protein 5.8 G/DL (6.4-8.2)
[2022-10-26] MEDS ORDERED: LIDOCAINE 2% 5 ML VIAL ONE (08:31)
[2022-10-26] MEDS ORDERED: KETAMINE 500 MG/10 ML VIAL ONE (08:31)
[2022-10-26] MEDS ORDERED: ONDANSETRON 4 MG/2 ML VIAL IV PRN (08:42)
[2022-10-26] MEDS ORDERED: NALOXONE 0.4 MG/ML VIAL IV PRN (08:42)
[2022-10-26] MEDS ORDERED: ACETAMINOPHEN 325 MG TABLET PO PRN (08:42)
[2022-10-26] MEDS ORDERED: INSULIN LISPRO 100 UNIT/ML SUBCUT STA (08:42)
[2022-10-26] MEDS ORDERED: DEXTROSE 10% 250 ML BAG IV PRN (08:42)
[2022-10-26] MEDS ORDERED: GLUCAGON 1 MG VIAL IM PRN (08:42)
[2022-10-26] MEDS ORDERED: TIMOLOL 0.5% OPH SOLN 5 ML BOTTLE RIGHT EYE SCH (09:00)
[2022-10-26] MEDS: GABAPENTIN 100 MG CAPSULE PO SCH ×2 (10:00→21:31)
[2022-10-26] MEDS: CLOPIDOGREL 75 MG TABLET PO SCH (10:00)
[2022-10-26] MEDS: TAMSULOSIN 0.4 MG CAPSULE PO SCH (10:00)
[2022-10-26] MEDS: ROSUVASTATIN 10 MG TABLET PO SCH (10:00)
[2022-10-26] MEDS: carvediloL 12.5 MG TABLET PO SCH ×2 (10:00→21:31)
[2022-10-26] MEDS: POTASSIUM CHLORIDE 20 MEQ TABLET PO SCH (10:00)
[2022-10-26] MEDS: DOCUSATE SODIUM 100 MG CAPSULE PO SCH ×2 (10:00→21:32)
[2022-10-26] MEDS: ASPIRIN EC 81 MG TABLET PO SCH (10:00)
[2022-10-26] MEDS: PANTOPRAZOLE 40 MG TABLET PO SCH (10:00)
[2022-10-26] MEDS: SODIUM CHLORIDE 0.45% 1,000 ML IV SCH ×2 (10:08→23:30)
[2022-10-26] MEDS: LEVOFLOXACIN 250 MG TABLET PO SCH (10:09)
[2022-10-26] MEDS: HYDROmorphone 1 MG/1 ML SYRINGE IV PRN ×3 (10:22→21:35)
[2022-10-26] MEDS: ALBUTEROL 2.5 MG/3 ML NEB RESP TX SCH ×2 (12:30→19:59)
[2022-10-26] MEDS: INSULIN LISPRO 100 UNIT/ML SUBCUT SCH ×3 (13:09→21:31)
[2022-10-26] MEDS ORDERED: INSULIN LISPRO 100 UNIT/ML SUBCUT SCH (21:00)
[2022-10-26] MEDS: TRAVOPROST 0.004% OPH SOLN 2.5 ML BOTTLE RIGHT EYE SCH (21:30)
[2022-10-26] MEDS: SACUBITRIL/VALSARTAN 49-51 MG TABLET PO SCH (21:31)
[2022-10-26] MEDS: INSULIN GLARGINE 100 UNIT/ML SUBCUT SCH (21:31)
[2022-10-26] MEDS: ESCITALOPRAM 10 MG TABLET PO SCH (21:31)
[2022-10-26] MEDS: PRAMIPEXOLE 0.25 MG TABLET PO SCH (21:32)
[2022-10-26] MEDS: tiZANidine 4 MG TABLET PO SCH (21:32)
[2022-10-27] MEDS: ALBUTEROL 2.5 MG/3 ML NEB RESP TX SCH ×4 (04:32→21:01)
[2022-10-27 05:01] LABS: Basophils % 0.2 % (0.0-0.8); Eosinophils % 0.2 % (0.00-10.9); Hematocrit 37.2 VOL% (42.0-52.0); Hemoglobin 11.1 GM/DL (14.0-18.0); Immature Granulocytes % 0.4 %; Immature Granulocytes Absolute 0.04 #; Lymphocytes # 1.1 10*3/uL (1.4-4.0); Lymphocytes % 11.6 % (21.2-54.2); Mean Corpuscular HGB Conc 29.8 GM/DL (32-36); Mean Corpuscular Volume 93.2 FL (87-102); Mean Platelet Volume 11.8 FL (9.6-12.0); Monocytes # 0.8 10*3/uL (0.11-0.8); Neutrophils % 79.6 % (38.7-73.9); Platelet Count 96 T/CUMM (130-400); Red Blood Count 3.99 MC/CUMM (3.8-5.5); Red Cell Distribution Width 17.7 % (9.3-17.3); White Blood Count 9.53 T/CUMM (4-12)
[2022-10-27 05:18] LABS: Calcium 8.5 MG/DL (8.5-10.1); Osmolality,Calculated 287.1 MOS/KG (273-304); Potassium 5.3 MMOL/L (3.5-5.1)
[2022-10-27 05:19] LABS: Hypochromia Slight; Microcytosis 1+; Polychromasia Slight
[2022-10-27 05:20] LABS: Ovalocytes Slight; Platelet Estimate Decreased
[2022-10-27] MEDS: HYDROmorphone 1 MG/1 ML SYRINGE IV PRN ×3 (07:36→22:05)
[2022-10-27] MEDS: INSULIN LISPRO 100 UNIT/ML SUBCUT SCH ×4 (08:07→22:05)
[2022-10-27] MEDS: INSULIN GLARGINE 100 UNIT/ML SUBCUT SCH (09:10)
[2022-10-27] MEDS: FEBUXOSTAT 80 MG TABLET PO SCH (10:04)
[2022-10-27] MEDS: POTASSIUM CHLORIDE 20 MEQ TABLET PO SCH (10:05)
[2022-10-27] MEDS: SACUBITRIL/VALSARTAN 49-51 MG TABLET PO SCH (10:05)
[2022-10-27] MEDS: TIMOLOL 0.5% OPH SOLN 5 ML BOTTLE RIGHT EYE SCH (10:05)
[2022-10-27] MEDS: CLOPIDOGREL 75 MG TABLET PO SCH (10:05)
[2022-10-27] MEDS: DOCUSATE SODIUM 100 MG CAPSULE PO SCH ×2 (10:05→22:04)
[2022-10-27] MEDS: FUROSEMIDE 80 MG TABLET PO SCH (10:05)
[2022-10-27] MEDS: carvediloL 12.5 MG TABLET PO SCH ×2 (10:05→22:04)
[2022-10-27] MEDS: PANTOPRAZOLE 40 MG TABLET PO SCH (10:05)
[2022-10-27] MEDS: ROSUVASTATIN 10 MG TABLET PO SCH (10:06)
[2022-10-27] MEDS: ASPIRIN EC 81 MG TABLET PO SCH (10:06)
[2022-10-27] MEDS: TAMSULOSIN 0.4 MG CAPSULE PO SCH (10:06)
[2022-10-27] MEDS: GABAPENTIN 100 MG CAPSULE PO SCH ×2 (10:06→22:05)
[2022-10-27] MEDS: LEVOFLOXACIN 250 MG TABLET PO SCH (10:06)
[2022-10-27] MEDS ORDERED: ALBUTEROL 1.25 MG/3 ML NEB RESP TX ONE (19:42)
[2022-10-27] MEDS: ESCITALOPRAM 10 MG TABLET PO SCH (22:04)
[2022-10-27] MEDS: PRAMIPEXOLE 0.25 MG TABLET PO SCH (22:04)
[2022-10-27] MEDS: tiZANidine 4 MG TABLET PO SCH (22:04)
[2022-10-27] MEDS: TRAVOPROST 0.004% OPH SOLN 2.5 ML BOTTLE RIGHT EYE SCH (22:10)
[2022-10-28] MEDS: SACUBITRIL/VALSARTAN 49-51 MG TABLET PO SCH ×3 (01:09→20:39)
[2022-10-28] MEDS: INSULIN GLARGINE 100 UNIT/ML SUBCUT SCH ×3 (01:10→20:49)
[2022-10-28] MEDS: ALBUTEROL 2.5 MG/3 ML NEB RESP TX SCH ×2 (03:03→10:35)
[2022-10-28] MEDS: INSULIN LISPRO 100 UNIT/ML SUBCUT SCH ×4 (07:00→20:50)
[2022-10-28] MEDS: LEVALBUTEROL 1.25 MG/3 ML NEB RESP TX PRN ×3 (08:05→22:30)
[2022-10-28] MEDS: ROSUVASTATIN 10 MG TABLET PO SCH (08:37)
[2022-10-28] MEDS: CLOPIDOGREL 75 MG TABLET PO SCH (08:37)
[2022-10-28] MEDS: carvediloL 12.5 MG TABLET PO SCH ×2 (08:38→20:45)
[2022-10-28] MEDS: ASPIRIN EC 81 MG TABLET PO SCH (08:38)
[2022-10-28] MEDS: PANTOPRAZOLE 40 MG TABLET PO SCH (08:38)
[2022-10-28] MEDS: TAMSULOSIN 0.4 MG CAPSULE PO SCH (08:38)
[2022-10-28] MEDS: POTASSIUM CHLORIDE 20 MEQ TABLET PO SCH (08:38)
[2022-10-28] MEDS: DOCUSATE SODIUM 100 MG CAPSULE PO SCH ×2 (08:38→20:39)
[2022-10-28] MEDS: LEVOFLOXACIN 250 MG TABLET PO SCH (08:38)
[2022-10-28] MEDS: GABAPENTIN 100 MG CAPSULE PO SCH ×2 (08:39→20:40)
[2022-10-28] MEDS: FUROSEMIDE 80 MG TABLET PO SCH (08:39)
[2022-10-28] MEDS: TRAVOPROST 0.004% OPH SOLN 2.5 ML BOTTLE RIGHT EYE SCH ×2 (08:40→20:49)
[2022-10-28] MEDS: TIMOLOL 0.5% OPH SOLN 5 ML BOTTLE RIGHT EYE SCH (08:43)
[2022-10-28] MEDS: HYDROmorphone 1 MG/1 ML SYRINGE IV PRN ×2 (11:04→20:31)
[2022-10-28] MEDS: FEBUXOSTAT 80 MG TABLET PO SCH (11:13)
[2022-10-28] MEDS: PRAMIPEXOLE 0.25 MG TABLET PO SCH (20:39)
[2022-10-28] MEDS: ESCITALOPRAM 10 MG TABLET PO SCH (20:40)
[2022-10-28] MEDS: tiZANidine 4 MG TABLET PO SCH (20:40)
[2022-10-29] MEDS: LEVALBUTEROL 1.25 MG/3 ML NEB RESP TX PRN (02:35)
[2022-10-29] MEDS: HYDROmorphone 1 MG/1 ML SYRINGE IV PRN (05:21)
[2022-10-29] MEDS ORDERED: LEVALBUTEROL 1.25 MG/3 ML NEB RESP TX PRN (07:00)
[2022-10-29] MEDS: ROSUVASTATIN 10 MG TABLET PO SCH (09:36)
[2022-10-29] MEDS: FUROSEMIDE 80 MG TABLET PO SCH (09:36)
[2022-10-29] MEDS: POTASSIUM CHLORIDE 20 MEQ TABLET PO SCH (09:36)
[2022-10-29] MEDS: SACUBITRIL/VALSARTAN 49-51 MG TABLET PO SCH (09:36)
[2022-10-29] MEDS: CLOPIDOGREL 75 MG TABLET PO SCH (09:36)
[2022-10-29] MEDS: FEBUXOSTAT 80 MG TABLET PO SCH (09:36)
[2022-10-29] MEDS: DOCUSATE SODIUM 100 MG CAPSULE PO SCH (09:37)
[2022-10-29] MEDS: ASPIRIN EC 81 MG TABLET PO SCH (09:37)
[2022-10-29] MEDS: PANTOPRAZOLE 40 MG TABLET PO SCH (09:37)
[2022-10-29] MEDS: LEVOFLOXACIN 250 MG TABLET PO SCH (09:37)
[2022-10-29] MEDS: GABAPENTIN 100 MG CAPSULE PO SCH (09:37)
[2022-10-29] MEDS: carvediloL 12.5 MG TABLET PO SCH (09:37)
[2022-10-29] MEDS: TAMSULOSIN 0.4 MG CAPSULE PO SCH (09:37)
[2022-10-29] MEDS: TIMOLOL 0.5% OPH SOLN 5 ML BOTTLE RIGHT EYE SCH (09:38)
[2022-10-29] MEDS: INSULIN GLARGINE 100 UNIT/ML SUBCUT SCH (09:41)
[2022-10-29] MEDS: INSULIN LISPRO 100 UNIT/ML SUBCUT SCH ×2 (11:26→11:34)
[2022-10-29 11:52] VITALS: BP 98/61
== END 2022-10-29 13:45 | disposition home health service (06) | DRG 563 ==
LOC: N.ED 06:27 → N.EDINP 08:42 → N.2E 10:46
PROVIDERS: ADMIT Family Medicine; ATTEND Family Medicine